=== PATIENT | female | born 1990 | race Two or more races ===

== ENCOUNTER 2018-06-16 06:11 | Inpatient (IN) ==
[2018-06-16] MEDS ORDERED: Diphtheria/Tetanus/Pertussis Vaccine Inj 0.5 ML Syringe IM ONE ×2 (06:22→06:27)
[2018-06-16] MEDS ORDERED: Morphine Inj 4 MG/ML Vial ONE (06:22)
[2018-06-16] MEDS ORDERED: ceFAZolin 2 GM Premix Inj 2 GM/50 ML PIGGYBACK IV.SIG ONE (06:23)
[2018-06-16 06:49] LABS: Baso # (Auto) 0.1 th/mm3 (0.0-0.2); Baso % (Auto) 0.3 % (0.0-2.0); Eos # (Auto) 0.3 th/mm3 (0.0-0.4); Eos % (Auto) 0.7 % (0.0-4.0); Hematocrit 37.9 % (35.0-46.0); Hemoglobin 12.6 gm/dL (11.6-15.3); Lymph # (Auto) 3.6 th/mm3 (1.0-4.8); Lymph % (Auto) 9.7 % (9.0-44.0); Mean Corpuscular HGB Conc 33.1 % (32.0-36.0); Mean Corpuscular Hemoglobin 29.9 pg (27.0-34.0); Mean Corpuscular Volume 90.1 fL (80.0-100.0); Mono # (Auto) 2.1 th/mm3 (0.0-0.9); Mono % (Auto) 5.6 % (0.0-8.0); Neut # (Auto) 31.2 th/mm3 (1.8-7.7); Neut % (Auto) 83.7 % (16.0-70.0); Platelet Count 307 th/mm3 (150-450); White Blood Count 37.3 th/mm3 (4.0-11.0)
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
[2018-06-16 07:03] LABS: Activated Partial Thrombo Time 20.8 sec (23.4-31.7); INR 1.2 Ratio; Prothrombin Time 12.6 sec (9.8-11.6)
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
[2018-06-16 07:36] LABS: Eosinophils 1 % (0-4); Lymphocytes 8 % (9-44); Monocytes 5 % (0-8)
[2018-06-16 07:37] LABS: Platelet Estimate Normal (Normal); Platelet Morphology Normal (Normal); RBC Morphology Normal (Normal)
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
[2018-06-16] MEDS ORDERED: fentaNYL Citrate Inj 250 MCG/5 ML Ampul ONE (07:55)
[2018-06-16] MEDS ORDERED: Gelatin 12 MM/7 MM Topical Foam ONE (08:51)
--- NOTE | 2018-06-16 09:24 | P.RAD ---
Post Procedure Progress Note - Procedure Information Procedure Date: 06/16/18 Supervising Radiologist: Sherif Chow MD Estimated blood loss (mL): 5 Anesthesia: Conscious Sedation - Plan of Activity Patient to Unit: Critical Care Patient Condition: Good See PACS Report for procedural detail/treatment.
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
[2018-06-16] MEDS: Pantoprazole Inj 40 MG Vial IV.PUSH SCH (10:47)
[2018-06-16] MEDS: Sod Chloride 0.9% Inj 1,000 ML IV.CONT SCH ×3 (10:47→20:42)
[2018-06-16] MEDS: Docusate Sodium 100 MG Capsule PO SCH ×2 (10:50→20:41)
[2018-06-16 11:53] LABS: Amphetamine Screen,Urine Neg (Neg); Barbiturate Screen,Urine Neg (Neg); Cannabinoid Screen,Urine Neg (Neg); Cocaine Screen,Urine Neg (Neg)
[2018-06-16 11:55] LABS: Opiate Screen,Urine Pos (Neg)
--- NOTE | 2018-06-16 11:57 | P.CONOP ---
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 unspecified part of right clavicle, initial encounter for closed fracture Status: Acute (2) Traumatic diastasis of symphysis pubis Code(s): S33.4XXA - Traumatic rupture of symphysis pubis, initial encounter Status: Acute (3) Bilateral fracture of pubic rami Code(s): S32.591A - Other specified fracture of right pubis, initial encounter for closed fracture; S32.592A - Other specified fracture of left pubis, initial encounter for closed fracture Status: Acute (4) Fracture acetabulum-closed Code(s): S32.409A - Unspecified fracture of unspecified acetabulum, initial encounter for closed fracture Status: Acute (5) Fracture, scapula closed Code(s): S42.109A - Fracture of unspecified part of scapula, unspecified shoulder, initial encounter for closed fracture Status: Acute - Assessment and Plan I also saw and examined this patient. History, past medical history, social history, review of systems, physical exam, radiographs, assessment, and plan were reviewed. Plan of care was discussed and established. She has a right clavicle fracture, right scapular fracture, pelvic ring disruption, and bilateral acetabulum fractures. At this point I would recommend open reduction to fixation of right clavicle and closed reduction with external fixation of pelvic ring. She may need additional surgery for open reduction fixation of right acetabular fracture next week. The risk and benefits of surgery were discussed in depth with patient. The risk of surgery include bleeding, infection, injuries to arteries, nerves, or blood vessels, infection, wound complications, nonunion, malunion, painful hardware, and need for further surgery. I also discussed medical complications including blood clots, pneumonia, stroke, heart attack, and . Informed consent was obtained and all questions were answered. N.p.o.--plan on surgery this morning Calcium and vitamin D supplementation Physical therapy consult--nonweightbearing right arm and bilateral legs ARUN López Lovenox A mid-level provider in my office (nurse practitioner or physician electrical assistant) may see this patient on follow-up visits and continue to implement the objectives of this plan including: Starting or adjusting medications, injections , cast application, orthotics, brace application, physical therapy, radiological studies (including x-ray, MRI, CT, ultrasound, bone scan), vascular studies, neurologic studies, specialist consultation, and proceeding with surgical management, as appropriate. <Tono Garnica - Last Filed: 06/17/18 12:20>
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
[2018-06-16 13:35] LABS: Baso % (Auto) 0.1 % (0.0-2.0); Hematocrit 40.2 % (35.0-46.0); Hemoglobin 13.5 gm/dL (11.6-15.3); Lymph # (Auto) 0.5 th/mm3 (1.0-4.8); Lymph % (Auto) 2.6 % (9.0-44.0); Mean Corpuscular HGB Conc 33.7 % (32.0-36.0); Mean Corpuscular Hemoglobin 30.7 pg (27.0-34.0); Mean Corpuscular Volume 91.1 fL (80.0-100.0); Mean Platelet Volume 8.4 fL (7.0-11.0); Mono # (Auto) 1.9 th/mm3 (0.0-0.9); Mono % (Auto) 10.1 % (0.0-8.0); Neut # (Auto) 16.3 th/mm3 (1.8-7.7); Neut % (Auto) 87.2 % (16.0-70.0); Platelet Count 213 th/mm3 (150-450); Red Blood Count 4.41 mil/mm3 (4.00-5.30); Red Cell Distribution Width 13.3 % (11.6-17.2); White Blood Count 18.7 th/mm3 (4.0-11.0)
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
[2018-06-16] MEDS: Methocarbamol 500 MG Tablet PO SCH ×2 (16:04→22:24)
[2018-06-16] MEDS: Lidocaine 5% Patch T-DERMAL SCH (16:04)
[2018-06-16] MEDS: Morphine Inj 4 MG/ML Vial IV.PUSH PRN (17:20)
[2018-06-16] MEDS ORDERED: Petrolatum,White 4 GM STICK TOPICAL PRN (17:38)
[2018-06-16] MEDS ORDERED: Sodium Chloride 0.9% 2 ML Flush PRN IV.FLUSH (17:39)
[2018-06-16] MEDS ORDERED: Sodium Phosphate Inj 30 MMOL in Sodium Chlor 0.9% Inj 250 ML IV.SIG PRN (18:58)
[2018-06-16] MEDS ORDERED: Potassium Chloride Liq 20 MEQ/15 ML UDC PO PRN ×2 (18:58)
[2018-06-16] MEDS ORDERED: Potassium Chlor 20 mEq Premix 20 MEQ/100 ML PIGGYBACK IV.SIG PRN ×2 (18:58)
[2018-06-16] MEDS ORDERED: Magnesium Sulfate Inj 4 GM in Sodium Chlor 0.9% Inj 92 ML IV.SIG PRN (18:58)
[2018-06-16] MEDS ORDERED: Potassium Phosphate 500 MG Soluble Tablet PO PRN ×2 (18:58)
[2018-06-16] MEDS ORDERED: Magnesium Sulfate Inj 2 GM in Sodium Chlor 0.9% Inj 96 ML IV.SIG PRN (18:58)
[2018-06-16] MEDS ORDERED: Potassium Phosphate Inj 30 MMOL in Sodium Chlor 0.9% Inj 250 ML IV.SIG PRN (18:58)
[2018-06-16] MEDS ORDERED: Magnesium Oxide 400 MG Tablet PO PRN (18:58)
[2018-06-16] MEDS ORDERED: Potassium Chlor 40 mEq Premix 40 MEQ/100 ML PIGGYBACK IV.SIG PRN ×2 (18:58)
[2018-06-16] MEDS: Sodium Chloride 0.9% 2 ML Flush BID IV.FLUSH SCH (20:42)
[2018-06-17] MEDS ORDERED: Chlorhexidine Gluconate 2% 1 Pack (2 Cloths) TOPICAL PRN (04:00)
--- NOTE | 2018-06-17 04:09 | XR ---
EXAM DATE: 06/17/2018 3:55 AM EST AGE/SEX: 89 years / Female INDICATIONS: Hemathorax. CLINICAL DATA: This is the patient's subsequent encounter. Patient reports that signs and symptoms h ave been present for 2 days and indicates a pain score of Nonresponsive. MEDICAL/SURGICAL HISTORY: Non-responsive. Non-responsive. COMPARISON: [facility] [place], CT CHEST W CONTRAST, 06/16/2018. [facility] [place], CHEST 1V SINGLE AP, 06/16/2018. . FINDINGS: Portable AP view of the chest demonstrates a normal-sized cardiac silhouette. Lungs are underinflated with mild atelectasis at the lung bases. No effusion or pneumothorax is identified. There is a displ aced right mid clavicle fracture. The right rib fractures documented on the a prior CT is not appreci ated on this examination. CONCLUSION: 1. Underinflation with mild atelectasis at the lung bases. No pleural effusion or pneumothorax is vi sualized. 2. Displaced right clavicle fracture. The right rib fracture documented on recent CT is not apprecia cate on this examination. Electronically signed by: Bravo Harper MD Board Certified Radiologist 06/17/2018 4:08 AM EST
[2018-06-17] MEDS: Methocarbamol 500 MG Tablet PO SCH ×3 (05:59→21:53)
[2018-06-17] MEDS: Chlorhexidine Gluconate 2% 1 Pack (2 Cloths) TOPICAL SCH (05:59)
[2018-06-17] MEDS: Sod Chloride 0.9% Inj 1,000 ML IV.CONT SCH ×3 (06:00→21:52)
[2018-06-17 06:10] LABS: Baso % (Auto) 0.3 % (0.0-2.0); Eos % (Auto) 0.2 % (0.0-4.0); Hemoglobin 10.7 gm/dL (11.6-15.3); Lymph # (Auto) 1.4 th/mm3 (1.0-4.8); Lymph % (Auto) 14.6 % (9.0-44.0); Mean Corpuscular HGB Conc 34.6 % (32.0-36.0); Mean Corpuscular Hemoglobin 30.6 pg (27.0-34.0); Mean Corpuscular Volume 88.3 fL (80.0-100.0); Mean Platelet Volume 8.5 fL (7.0-11.0); Mono # (Auto) 1.2 th/mm3 (0.0-0.9); Mono % (Auto) 12.4 % (0.0-8.0); Neut # (Auto) 6.8 th/mm3 (1.8-7.7); Neut % (Auto) 72.5 % (16.0-70.0); Platelet Count 152 th/mm3 (150-450); Red Blood Count 3.51 mil/mm3 (4.00-5.30); White Blood Count 9.4 th/mm3 (4.0-11.0)
[2018-06-17 06:36] LABS: Anion Gap 8 meq/L (5-15); Blood Urea Nitrogen 17 mg/dL (7-18); Calcium 7.8 mg/dL (8.5-10.1); Carbon Dioxide 25.9 meq/L (21.0-32.0); Chloride 104 meq/L (98-107); Glomerular Filtration Rate Greater Than 89 mL/min (>89); Glucose,Random 105 mg/dL (74-106); Potassium 3.9 meq/L (3.5-5.1); Sodium 138 meq/L (136-145)
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
[2018-06-17] MEDS: Lidocaine 5% Patch T-DERMAL SCH (09:05)
[2018-06-17] MEDS: Docusate Sodium 100 MG Capsule PO SCH ×2 (09:05→21:54)
[2018-06-17] MEDS: Sodium Chloride 0.9% 2 ML Flush BID IV.FLUSH SCH ×2 (09:05→21:54)
[2018-06-17] MEDS: Pantoprazole Inj 40 MG Vial IV.PUSH SCH (09:05)
[2018-06-17] MEDS ORDERED: ceFAZolin 1 GM Premix Inj 1 GM/50 ML PIGGYBACK IV.SIG ONE (09:34)
[2018-06-17] MEDS ORDERED: Succinylcholine Inj 100 MG/5 ML Syringe IV.PUSH ONE (10:19)
[2018-06-17] MEDS ORDERED: Sodium Chlor 0.9% Inj 250 ML IV.CONT ONE (10:19)
[2018-06-17] MEDS ORDERED: Lidocaine PF 1% Inj 5 ML Syringe OTHER ONE (10:19)
[2018-06-17] MEDS ORDERED: Bupivacaine/Epinephrine Inj 0.25% 50 ML Vial ONE (11:24)
[2018-06-17] MEDS ORDERED: SODIUM CHLOR 0.9% IRRIGATION ONE (11:42)
[2018-06-17] MEDS ORDERED: GENTAMICIN IRRIGATION ONE (11:42)
--- NOTE | 2018-06-17 11:54 | OTSOAPIP ---
TIME SESSION COMPLETED: 1150 TREATMENT TIME: 0 MINS. CHART REVIEWED. PATIENT OFF FLOOR FOR SURGERY WILL FOLLOW UP TOMORROW. Therapist: Annie Meneses Signature on file
[2018-06-17] MEDS ORDERED: Post-op Orders (for Pharmacy) OTHER STA (12:10)
--- NOTE | 2018-06-17 12:19 | P.OP ---
- Preoperative Diagnosis (1) Fracture of clavicle, right, closed (2) Traumatic diastasis of symphysis pubis (3) Bilateral fracture of pubic rami Date of procedure: 06/17/18 Procedure: Open reduction to fixation right clavicle, closed reduction of pelvic fractures with manipulation, external fixation pelvis Anesthesia: GETA Surgeon: Tono David MD Frame And Scrap Crusher: NICKI Bautista PA-C The surgical procedure was assisted by my physician practice assistant. My P.A. presence was necessary throughout this case for the manipulation and positioning of the surgical extremity. My P.A. was assisting me throughout the duration of this procedure. The skill set of a physician practice assistant was medically necessary to complete this procedure. During the surgical case the certified surgical tech/first assistant was working at the back table and the physician practice assistant was directly assisting me. Operation and Findings: Implants used: Synthes Plan of activity: Sling right arm, nonweightbearing right arm and bilateral legs Details of procedure: Patient was seen and evaluated preoperatively. Patient was found to have a pubic symphysis disruption, bilateral acetabulum fractures, and displaced right clavicle fracture. The risks and benefits of surgical and nonsurgical options were discussed in detail and informed consent was obtained for surgery. Patient was brought to the operating room and placed on or table. IV sedation and GETA were administered by anesthesiologist. Antibiotics were given prior to incision. Operative arm and shoulder were prepped with alcohol followed by Hibiclens and draped usual sterile fashion. Timeout procedure was performed. Procedure began with a 4 inch incision over the anterior clavicle. Subcutaneous tissue was dissected with Bovie. The fracture was now visualized. Soft tissue was retracted. Fracture was cleaned with curettes. Attention was now turned to reduction. Gentle traction was applied and fracture tenaculums were used to reduce the fracture. Fracture was manipulated to achieve excellent reduction. Multiplanar fluoroscopy confirmed well aligned fracture. K wires were used to hold provisional fixation. A clavicle plate was selected. Plate was provisionally held in place K wires. 3.5 cortical screws were used to compress plate to bone. Fluoroscopy confirmed appropriate plate placement and fracture reduction. Multiple screws were placed on each side of the fracture. All Screws were predrilled and premeasured for appropriate length. Care was taken to avoid injury to neurovascular structures. Final fluoroscopy revealed well aligned fracture with well-placed hardware. Wound was thoroughly irrigated. Fascia was closed with #0 Vicryl, subcutaneous tissues closed with 3-0 Vicryl, and skin was closed with barry. Next attention was turned towards the pelvis. A small incision was made over the anterior inferior iliac spine bilaterally. Subcu tissue was dissected bluntly. Dural sleeves were now placed down to bone. The cortical bone was predrilled. Synthes MCCAIN-coated pins were now placed in a supra acetabular position. Multiplanar fluoroscopy confirmed appropriate pin placement. Fluoroscopy was used to guide pin placement to avoid injury to neurovascular structures. An external fixator construct was now created. Next attention was turned towards manipulation of the pelvis. The the fracture and pubic symphysis were reduced. The fracture was manipulated. External fixator was tightened to hold reduction. Fluoroscopy confirmed appropriate alignment of the external fixation. Sterile dressings were applied. Patient was placed into a sling. Patient was awakened and transferred to recovery in stable condition. Needle and sponge counts were correct.
[2018-06-17] MEDS ORDERED: fentaNYL Citrate Inj 100 MCG/2 ML Ampul ONE (12:48)
[2018-06-17] MEDS ORDERED: *morphine SULFATE 4 MG/ML PERIprocedure ONLY ONE ×2 (12:50→13:07)
--- NOTE | 2018-06-17 14:11 | XR ---
EXAM DATE: 06/17/2018 2:07 PM EST AGE/SEX: 27 years / Female INDICATIONS: Right clavicle open reduction internal fixation. CLINICAL DATA: This is the patient's initial encounter. Patient reports that signs and symptoms have been present for 1 day and indicates a pain score of Nonresponsive. MEDICAL/SURGICAL HISTORY: Non-responsive. Non-responsive. COMPARISON: No prior exams available for comparison. FINDINGS: Side plate and multiple screws traverse the right clavicle with excellent anatomical align ment of the bony structures. CONCLUSION: Intact postsurgical changes for technique. Electronically signed by: Micha Tom MD Board Certified Radiologist 06/17/2018 2:09 PM EST
--- NOTE | 2018-06-17 14:12 | XR ---
EXAM DATE: 06/17/2018 2:08 PM EST AGE/SEX: 27 years / Female INDICATIONS: Pelvis ex-fix. CLINICAL DATA: This is the patient's initial encounter. Patient reports that signs and symptoms have been present for 1 day and indicates a pain score of Nonresponsive. MEDICAL/SURGICAL HISTORY: Non-responsive. Non-responsive. COMPARISON: No prior exams available for comparison. FINDINGS: External fixation screw traverses the right iliac bone. CONCLUSION: External fixation device. Electronically signed by: Micha Tom MD Board Certified Radiologist 06/17/2018 2:11 PM EST
[2018-06-17] MEDS ORDERED: ceFAZolin Inj 2,000 MG in Sodium Chlor 0.9% Inj 80 ML IV.SIG SCH (15:00)
[2018-06-17] MEDS: ceFAZolin 2 GM Premix Inj 2 GM/50 ML PIGGYBACK IV.SIG SCH ×2 (15:16→23:32)
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
--- NOTE | 2018-06-17 15:41 | P.PNOP ---
Subjective Interval history: Transferred to PACU in stable condition Physical Exam Vital signs: Vital Signs 06/16/18 16:00 06/16/18 16:01 06/16/18 16:31 Temperature 100.2 F H 100.2 F H 100.2 F H Pulse Rate 119 H 120 H 128 H Respiratory Rate 25 H 24 25 H Blood Pressure 101/63 103/58 L Pulse Oximetry 100 100 99 06/16/18 17:00 06/16/18 17:01 06/16/18 17:31 Temperature 100.2 F H 100.2 F H 100.2 F H Pulse Rate 125 H 125 H 117 H Respiratory Rate 25 H 26 H 25 H Blood Pressure 97/58 L 102/63 Pulse Oximetry 99 99 100 06/16/18 18:00 06/16/18 18:01 06/16/18 18:31 Temperature 100.2 F H 100.2 F H 100.2 F H Pulse Rate 122 H 118 H 114 H Respiratory Rate 24 25 H 25 H Blood Pressure 97/58 L 98/60 L Pulse Oximetry 97 99 99 06/16/18 19:00 06/16/18 19:01 06/16/18 19:31 Temperature 100.0 F H 100.0 F H 99.9 F H Pulse Rate 121 H 120 H 123 H Respiratory Rate 20 20 22 Blood Pressure 101/56 L 98/54 L Pulse Oximetry 99 99 97 06/16/18 19:49 06/16/18 20:00 06/16/18 20:01 Temperature 100.0 F H 100.0 F H Pulse Rate 114 H 123 H 128 H Respiratory Rate 14 24 24 Blood Pressure 121/77 Pulse Oximetry 100 100 06/16/18 20:31 06/16/18 21:00 06/16/18 21:01 Temperature 100.0 F H 100.0 F H 100.0 F H Pulse Rate 130 H 126 H 123 H Respiratory Rate 22 29 H 31 H Blood Pressure 145/55 H 114/64 Pulse Oximetry 98 99 99 06/16/18 21:31 06/16/18 22:00 06/16/18 22:01 Temperature 99.9 F H 99.9 F H 99.9 F H Pulse Rate 122 H 118 H 125 H Respiratory Rate 23 21 20 Blood Pressure 103/62 97/60 L Pulse Oximetry 97 98 97 06/16/18 22:31 06/16/18 23:00 06/16/18 23:01 Temperature 99.9 F H 99.7 F H 99.7 F H Pulse Rate 124 H 123 H 124 H Respiratory Rate 23 23 22 Blood Pressure 98/57 L 103/60 Pulse Oximetry 98 98 97 06/16/18 23:31 06/17/18 00:00 06/17/18 00:01 Temperature 99.5 F 99.5 F 99.5 F Pulse Rate 120 H 113 H 113 H Respiratory Rate 21 24 25 H Blood Pressure 98/57 L 106/65 Pulse Oximetry 99 100 99 06/17/18 00:31 06/17/18 01:00 06/17/18 01:01 Temperature 99.5 F 99.3 F 99.3 F Pulse Rate 118 H 117 H 116 H Respiratory Rate 24 20 20 Blood Pressure 104/62 101/59 L Pulse Oximetry 100 98 99 06/17/18 01:15 06/17/18 01:31 06/17/18 02:00 Temperature 99.1 F 99.0 F Pulse Rate 116 H 113 H Respiratory Rate 22 18 18 Blood Pressure 116/53 L Pulse Oximetry 96 97 06/17/18 02:01 06/17/18 02:31 06/17/18 03:00 Temperature 98.8 F 98.6 F 98.6 F Pulse Rate 112 H 109 H 112 H Respiratory Rate 18 17 19 Blood Pressure 108/55 L 113/57 L Pulse Oximetry 97 99 99 06/17/18 03:01 06/17/18 03:18 06/17/18 03:31 Temperature 98.6 F 98.6 F Pulse Rate 110 H 111 H 108 H Respiratory Rate 17 16 19 Blood Pressure 103/56 L 110/65 Pulse Oximetry 99 100 06/17/18 04:00 06/17/18 04:01 06/17/18 04:31 Temperature 98.6 F 98.6 F 98.6 F Pulse Rate 116 H 113 H 113 H Respiratory Rate 34 H 35 H 24 Blood Pressure 100/59 L 111/57 L Pulse Oximetry 98 99 99 06/17/18 05:00 06/17/18 05:01 06/17/18 05:31 Temperature 98.4 F 98.4 F 98.2 F Pulse Rate 113 H 112 H 109 H Respiratory Rate 22 23 20 Blood Pressure 101/61 107/62 Pulse Oximetry 98 99 100 06/17/18 06:00 06/17/18 06:01 06/17/18 06:31 Temperature 98.4 F 98.4 F 98.4 F Pulse Rate 108 H 111 H 105 H Respiratory Rate 28 H 23 15 Blood Pressure 109/65 111/59 L Pulse Oximetry 99 100 98 06/17/18 07:00 06/17/18 07:01 06/17/18 07:31 Temperature 98.4 F 98.4 F 98.2 F Pulse Rate 104 H 105 H 100 H Respiratory Rate 18 17 16 Blood Pressure 111/60 100/66 Pulse Oximetry 98 98 99 06/17/18 08:00 06/17/18 08:01 06/17/18 08:03 Temperature 98.2 F 98.2 F Pulse Rate 103 H 104 H 103 H Respiratory Rate 24 22 18 Blood Pressure 107/59 L Pulse Oximetry 100 100 06/17/18 08:31 06/17/18 09:30 06/17/18 10:00 Temperature 98.2 F Pulse Rate 105 H 110 H 112 H Respiratory Rate 33 H 20 21 Blood Pressure 108/61 108/59 L 105/55 L Pulse Oximetry 99 100 100 06/17/18 12:45 06/17/18 13:03 06/17/18 13:20 Temperature 98.7 F 98.0 F Pulse Rate 121 H 110 H 112 H Respiratory Rate 20 20 18 Blood Pressure 115/56 L 109/56 L 106/58 L Pulse Oximetry 96 96 98 Intake & Output 06/16/18 06/17/18 06/17/18 18:59 06:59 18:59 Intake Total 50 / 50 2430 / 2430 50 / 50 Output Total 450 / 450 550 / 550 Balance 50 / 50 1979 / 1979 -500 / -500 Weight 90.6 kg 93.4 kg Intake: IV 50 / 50 1949 50 / 50 NS Inj 1,000 ML @ 100 mls/hr IV 1949 .CONT .Q10H [facility] Rx#:[id number] Ancef 1 GM Premix Inj 1 gm In 50 / 50 50 ml @ 0 mls/hr IV.SIG .STK- MED ONE Rx#:[id number] Oral 480 / 480 Output: Estimated Blood Loss 100 / 100 Urine Amount (Catheter) 450 / 450 450 / 450 Indwelling Temp Sensing 450 / 450 450 / 450 Catheter Other: Weight On Admission 90.6 kg Narrative: Right upper extremity: Clean dry dressings intact. Sling in place. Good capillary refills and distal pulses to right upper extremity Pelvic external fixator well seated and intact. Clean dressings dressed over pin sites. Intact distal pulses and good capillary refills in bilateral lower extremities - Urinary Catheter Management Indwelling Temp Sensing Catheter Cath placed during this visit: yes Reason for continuing: Hourly intake/output Insertion date: 06/16/18 Insertion time: 08:24 Results - Labs CBC & Chem 7: 06/17/18 05:32 06/17/18 05:32 Laboratory Results - last 24 hr 06/16/18 06/17/18 06/17/18 06:44 05:32 05:32 WBC 9.4 RBC 3.51 L Hgb 10.7 L D Hct 31.0 L MCV 88.3 MCH 30.6 MCHC 34.6 RDW 13.0 Plt Count 152 MPV 8.5 Neut % (Auto) 72.5 H Lymph % (Auto) 14.6 [place] % (Auto) 12.4 H Eos % (Auto) 0.2 Baso % (Auto) 0.3 Neut # (Auto) 6.8 Lymph # (Auto) 1.4 [place] # (Auto) 1.2 H Eos # (Auto) 0.0 Baso # (Auto) 0.0 WBC Differential . Differential Comment Auto diff final Sodium 138 Potassium 3.9 Chloride 104 Carbon Dioxide 25.9 Anion Gap 8 BUN 17 Creatinine 0.55 Estimated GFR Greater than 89 Random Glucose 105 Calcium 7.8 L MTS Gel Crossmatch See Detail - Imaging Impressions Abdominal Angiography 06/16/18 07:38 CONCLUSION: 1. Findings most consistent with dissection and limited active hemorrhage from a second order anterior branch of the right hypogastric artery. This was successfully coil embolized with additional Gelfoam embolization of the right hypogastric artery. 2. No evidence for significant right femoral or iliac vein injury. Clavicle X-Ray 06/17/18 00:00 CONCLUSION: Intact postsurgical changes for technique. Pelvis X-Ray 06/17/18 00:00 CONCLUSION: External fixation device. Chest X-Ray 06/17/18 06:00 CONCLUSION: 1. Underinflation with mild atelectasis at the lung bases. No pleural effusion or pneumothorax is visualized. 2. Displaced right clavicle fracture. The right rib fracture documented on recent CT is not appreciated on this examination. Assessment and Plan - Problem List (1) Fracture of clavicle, right, closed Code(s): S42.001A - Fracture of unspecified part of right clavicle, initial encounter for closed fracture Status: Acute (2) Traumatic diastasis of symphysis pubis Code(s): S33.4XXA - Traumatic rupture of symphysis pubis, initial encounter Status: Acute (3) Bilateral fracture of pubic rami Code(s): S32.591A - Other specified fracture of right pubis, initial encounter for closed fracture; S32.592A - Other specified fracture of left pubis, initial encounter for closed fracture Status: Acute (4) Fracture acetabulum-closed Code(s): S32.409A - Unspecified fracture of unspecified acetabulum, initial encounter for closed fracture Status: Acute (5) Fracture, scapula closed Code(s): S42.109A - Fracture of unspecified part of scapula, unspecified shoulder, initial encounter for closed fracture Status: Acute - Assessment and Plan Right clavicle fracture ORIF POD 1 with right scapular fracture treated nonoperatively Minimal weightbearing right upper extremity. Continue to wear the sling. Occupational therapy and/or physical therapy for passive range of motion of shoulder with active motion of elbow wrist and fingers Maintain dressing times 5 days then remove and replace with Primapore. Beginning POD 10 begin adding Xeroform over incision to breakdown skin glue Bilateral acetabular fractures and pubic symphysis diastases status post external fixation POD 1 Nonweightbearing bilateral lower extremities Pin care twice daily Lovenox Further surgeries next week for pelvic ring and acetabular fractures.
[2018-06-18] MEDS: Sod Chloride 0.9% Inj 1,000 ML IV.CONT SCH ×3 (00:36→10:34)
[2018-06-18] MEDS: Chlorhexidine Gluconate 2% 1 Pack (2 Cloths) TOPICAL SCH (03:41)
[2018-06-18] MEDS: Morphine Inj 4 MG/ML Vial IV.PUSH PRN ×2 (05:13→23:56)
[2018-06-18] MEDS: Methocarbamol 500 MG Tablet PO SCH ×3 (05:14→21:06)
--- NOTE | 2018-06-18 05:28 | XR ---
EXAM DATE: 06/18/2018 5:21 AM EST AGE/SEX: 27 years / Female INDICATIONS: Respiratory disease. CLINICAL DATA: This is the patient's subsequent encounter. Patient reports that signs and symptoms h ave been present for 3 days and indicates a pain score of Nonresponsive. MEDICAL/SURGICAL HISTORY: Non-responsive. Non-responsive. COMPARISON: [facility] [place], CHEST 1V SINGLE AP, 06/17/2018. . FINDINGS: Portable AP view of the chest demonstrates a normal-sized cardiac silhouette. Lungs are underinflated with mild atelectasis at the lung bases. No pleural effusion or pneumothorax is identified. There tejada s been interval right clavicle ORIF with side plate and screws present. CONCLUSION: Underinflation with mild atelectasis at the bases. Otherwise, no acute finding is identified. Electronically signed by: Bravo Harpre MD Board Certified Radiologist 06/18/2018 5:27 AM EST
[2018-06-18 05:57] LABS: Baso % (Auto) 0.2 % (0.0-2.0); Eos % (Auto) 0.4 % (0.0-4.0); Hematocrit 25.4 % (35.0-46.0); Lymph # (Auto) 1.2 th/mm3 (1.0-4.8); Mean Corpuscular HGB Conc 35.6 % (32.0-36.0); Mean Corpuscular Hemoglobin 31.5 pg (27.0-34.0); Mean Corpuscular Volume 88.7 fL (80.0-100.0); Mean Platelet Volume 8.6 fL (7.0-11.0); Mono # (Auto) 0.9 th/mm3 (0.0-0.9); Mono % (Auto) 9.6 % (0.0-8.0); Neut # (Auto) 7.3 th/mm3 (1.8-7.7); Neut % (Auto) 76.8 % (16.0-70.0); Platelet Count 119 th/mm3 (150-450); Red Blood Count 2.86 mil/mm3 (4.00-5.30); Red Cell Distribution Width 13.3 % (11.6-17.2); White Blood Count 9.5 th/mm3 (4.0-11.0)
[2018-06-18] MEDS: ceFAZolin 2 GM Premix Inj 2 GM/50 ML PIGGYBACK IV.SIG SCH ×3 (06:17→23:56)
[2018-06-18 06:24] LABS: Alanine Aminotransferase 55 U/L (10-53); Albumin 2.4 g/dL (3.4-5.0); Anion Gap 4 meq/L (5-15); Aspartate Aminotransferase 97 U/L (15-37); Blood Urea Nitrogen 11 mg/dL (7-18); Calcium 7.6 mg/dL (8.5-10.1); Carbon Dioxide 27.3 meq/L (21.0-32.0); Chloride 106 meq/L (98-107); Glomerular Filtration Rate Greater Than 89 mL/min (>89); Glucose,Random 95 mg/dL (74-106); Sodium 137 meq/L (136-145)
[2018-06-18 06:26] LABS: Alkaline Phosphatase 41 U/L (45-117); Total Protein 5.3 g/dL (6.4-8.2)
--- NOTE | 2018-06-18 07:42 | P.PNOP ---
Subjective Interval history: No new complaints from the right arm or the pelvis. She just complains of some pain. Physical Exam Vital signs: Vital Signs 06/17/18 08:00 06/17/18 08:01 06/17/18 08:03 Temperature 98.2 F 98.2 F Pulse Rate 103 H 104 H 103 H Respiratory Rate 24 22 18 Blood Pressure 107/59 L Pulse Oximetry 100 100 06/17/18 08:31 06/17/18 08:50 06/17/18 09:30 Temperature 98.2 F Pulse Rate 105 H 108 H 110 H Respiratory Rate 33 H 32 H 20 Blood Pressure 108/61 108/59 L Pulse Oximetry 99 100 100 06/17/18 10:00 06/17/18 12:45 06/17/18 13:03 Temperature 98.7 F Pulse Rate 112 H 121 H 110 H Respiratory Rate 21 20 20 Blood Pressure 105/55 L 115/56 L 109/56 L Pulse Oximetry 100 96 96 06/17/18 13:20 06/17/18 13:54 06/17/18 13:56 Temperature 98.0 F Pulse Rate 112 H Respiratory Rate 18 Blood Pressure 106/58 L 117/57 L Pulse Oximetry 98 100 06/17/18 14:00 06/17/18 15:00 06/17/18 16:00 Temperature 98.4 F 98.6 F 99.0 F Pulse Rate 105 H 114 H 123 H Respiratory Rate 16 16 18 Blood Pressure 116/61 98/56 L Pulse Oximetry 100 100 100 06/17/18 16:56 06/17/18 17:00 06/17/18 18:00 Temperature 99.5 F 100.0 F H Pulse Rate 125 H 123 H 135 H Respiratory Rate 26 H 13 20 Blood Pressure 100/56 L 103/55 L Pulse Oximetry 100 99 06/17/18 19:00 06/17/18 19:46 06/17/18 20:00 Temperature 100.4 F H 100.4 F H Pulse Rate 130 H 126 H 123 H Respiratory Rate 23 15 21 Blood Pressure 96/52 L 106/57 L Pulse Oximetry 100 98 06/17/18 21:00 06/17/18 22:00 06/17/18 23:00 Temperature 100.0 F H 99.9 F H 99.7 F H Pulse Rate 136 H 133 H 131 H Respiratory Rate 19 26 H 20 Blood Pressure 111/56 L 106/51 L 102/53 L Pulse Oximetry 95 98 95 06/18/18 00:00 06/18/18 01:00 06/18/18 02:00 Temperature 99.7 F H 99.7 F H 99.5 F Pulse Rate 132 H 131 H 128 H Respiratory Rate 20 20 21 Blood Pressure 102/50 L 98/54 L 101/55 L Pulse Oximetry 98 98 97 06/18/18 03:00 06/18/18 03:38 06/18/18 04:00 Temperature 99.5 F 99.1 F Pulse Rate 128 H 119 H 126 H Respiratory Rate 21 16 38 H Blood Pressure 98/52 L 100/52 L Pulse Oximetry 96 96 06/18/18 05:00 06/18/18 05:06 06/18/18 06:00 Temperature 99.1 F 99.3 F 99.0 F Pulse Rate 116 H 116 H 124 H Respiratory Rate 19 20 Blood Pressure 106/57 L 92/51 L Pulse Oximetry 98 98 94 L Intake & Output 06/17/18 06/18/18 06/18/18 18:59 06:59 18:59 Intake Total 1030 / 1030 2746 / 2746 Output Total 1200 / 1200 550 / 550 Balance -170 / -170 2196 / 2196 Weight 97.3 kg Intake: IV 550 / 550 2386 / 2386 Gentamicin Inj 160 MG In NS Inj 1004 / 1004 1,000 ML @ 100 mls/hr IRRIGATION ONCE ONE Rx#: [id number] NS Inj 1,000 ML @ 100 mls/hr IV 500 / 500 1232 / 1232 .CONT .Q10H [facility] Rx#:[id number] Ancef 1 GM Premix Inj 1 gm In 50 / 50 50 ml @ 0 mls/hr IV.SIG .STK- MED ONE Rx#:[id number] Ancef 2 GM Premix Inj 2 gm In 150 / 150 50 ml @ 100 mls/hr IV.SIG Q8H [facility] Rx#:[id number] Oral 480 / 480 360 / 360 Output: Stool 0 / 0 Estimated Blood Loss 100 / 100 Urine Amount (Catheter) 1100 / 1100 550 / 550 Indwelling Temp Sensing 1100 / 1100 550 / 550 Catheter Narrative: The right upper extremity has a dressing which is clean and dry. There is no drainage. There is minimal swelling. She can move the fingers on the right hand well. She has a sling applied for comfort. Examination of the pelvis shows her external fixator is intact. She has dressings around the pin sites. There is no drainage or surrounding erythema. She has no swelling about the bilateral calves. She cannot really move the toes on both feet. - Urinary Catheter Management Indwelling Temp Sensing Catheter Cath placed during this visit: yes Reason for continuing: Hourly intake/output Insertion date: 06/16/18 Insertion time: 08:24 Results - Labs CBC & Chem 7: 06/18/18 05:18 06/18/18 05:18 Laboratory Results - last 24 hr 06/18/18 06/18/18 05:18 05:18 WBC 9.5 RBC 2.86 L Hgb 9.0 L Hct 25.4 L MCV 88.7 MCH 31.5 MCHC 35.6 RDW 13.3 Plt Count 119 L MPV 8.6 Neut % (Auto) 76.8 H Lymph % (Auto) 13.0 [place] % (Auto) 9.6 H Eos % (Auto) 0.4 Baso % (Auto) 0.2 Neut # (Auto) 7.3 Lymph # (Auto) 1.2 [place] # (Auto) 0.9 Eos # (Auto) 0.0 Baso # (Auto) 0.0 WBC Differential . Differential Comment Auto diff final Sodium 137 Potassium 4.0 Chloride 106 Carbon Dioxide 27.3 Anion Gap 4 L BUN 11 Creatinine 0.52 Estimated GFR Greater than 89 Random Glucose 95 Calcium 7.6 L Total Bilirubin 0.7 AST 97 H ALT 55 H Alkaline Phosphatase 41 L Total Protein 5.3 L Albumin 2.4 L - Imaging Impressions Abdominal Angiography 06/16/18 07:38 CONCLUSION: 1. Findings most consistent with dissection and limited active hemorrhage from a second order anterior branch of the right hypogastric artery. This was successfully coil embolized with additional Gelfoam embolization of the right hypogastric artery. 2. No evidence for significant right femoral or iliac vein injury. Clavicle X-Ray 06/17/18 00:00 CONCLUSION: Intact postsurgical changes for technique. Pelvis X-Ray 06/17/18 00:00 CONCLUSION: External fixation device. Chest X-Ray 06/18/18 06:00 CONCLUSION: Underinflation with mild atelectasis at the bases. Otherwise, no acute finding is identified. Assessment and Plan - Problem List (1) Fracture of clavicle, right, closed Code(s): S42.001A - Fracture of unspecified part of right clavicle, initial encounter for closed fracture Status: Acute (2) Traumatic diastasis of symphysis pubis Code(s): S33.4XXA - Traumatic rupture of symphysis pubis, initial encounter Status: Acute (3) Bilateral fracture of pubic rami Code(s): S32.591A - Other specified fracture of right pubis, initial encounter for closed fracture; S32.592A - Other specified fracture of left pubis, initial encounter for closed fracture Status: Acute (4) Fracture acetabulum-closed Code(s): S32.409A - Unspecified fracture of unspecified acetabulum, initial encounter for closed fracture Status: Acute (5) Fracture, scapula closed Code(s): S42.109A - Fracture of unspecified part of scapula, unspecified shoulder, initial encounter for closed fracture Status: Acute - Assessment and Plan Right clavicle fracture ORIF POD 2 with right scapular fracture treated nonoperatively Minimal weightbearing right upper extremity. Continue to wear the sling. Occupational therapy and/or physical therapy for passive range of motion of shoulder with active motion of elbow wrist and fingers Maintain dressing times 5 days then remove and replace with Primapore. Beginning POD 10 begin adding Xeroform over incision to breakdown skin glue Bilateral acetabular fractures and pubic symphysis diastases status post external fixation POD 2 Nonweightbearing bilateral lower extremities Pin care twice daily Lovenox Further surgeries next week for pelvic ring and acetabular fractures. Overall stable.
[2018-06-18] MEDS: Pantoprazole Inj 40 MG Vial IV.PUSH SCH (08:26)
[2018-06-18] MEDS: Docusate Sodium 100 MG Capsule PO SCH ×2 (08:27→21:06)
[2018-06-18] MEDS: Lidocaine 5% Patch T-DERMAL SCH (08:27)
[2018-06-18] MEDS: Sodium Chloride 0.9% 2 ML Flush BID IV.FLUSH SCH ×2 (08:28→21:07)
[2018-06-18] MEDS: Enoxaparin Inj 30 MG/0.3 ML Syringe SQ SCH ×2 (11:12→23:55)
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
--- NOTE | 2018-06-18 16:48 | OTSOAPIP ---
PATIENT BEING TRANSFERRED TO MEDICAL FLOOR AT TIME OF ARRIVAL. WILL SEE NEXT DAY. Therapist: LISA SELF OTR/Danielle Signature on file
[2018-06-18] MEDS ORDERED: LORazepam 0.5 MG Tablet PO PRN (18:47)
[2018-06-18] MEDS ORDERED: LORazepam 0.5 MG Tablet PO ONE (19:00)
[2018-06-19] MEDS: Methocarbamol 500 MG Tablet PO SCH ×4 (04:58→21:36)
[2018-06-19 05:39] LABS: Baso % (Auto) 0.4 % (0.0-2.0); Eos # (Auto) 0.1 th/mm3 (0.0-0.4); Eos % (Auto) 0.8 % (0.0-4.0); Hematocrit 24.6 % (35.0-46.0); Hemoglobin 8.3 gm/dL (11.6-15.3); Lymph # (Auto) 1.4 th/mm3 (1.0-4.8); Lymph % (Auto) 15.9 % (9.0-44.0); Mean Corpuscular HGB Conc 33.9 % (32.0-36.0); Mean Corpuscular Hemoglobin 30.5 pg (27.0-34.0); Mean Corpuscular Volume 90.1 fL (80.0-100.0); Mean Platelet Volume 8.4 fL (7.0-11.0); Mono # (Auto) 0.7 th/mm3 (0.0-0.9); Mono % (Auto) 7.7 % (0.0-8.0); Neut # (Auto) 6.6 th/mm3 (1.8-7.7); Neut % (Auto) 75.2 % (16.0-70.0); Platelet Count 150 th/mm3 (150-450); Red Blood Count 2.73 mil/mm3 (4.00-5.30); Red Cell Distribution Width 13.4 % (11.6-17.2); White Blood Count 8.8 th/mm3 (4.0-11.0)
[2018-06-19 06:04] LABS: Albumin 2.3 g/dL (3.4-5.0); Anion Gap 6 meq/L (5-15); Aspartate Aminotransferase 79 U/L (15-37); Blood Urea Nitrogen 11 mg/dL (7-18); Calcium 7.5 mg/dL (8.5-10.1); Carbon Dioxide 26.7 meq/L (21.0-32.0); Chloride 106 meq/L (98-107); Glomerular Filtration Rate Greater Than 89 mL/min (>89); Glucose,Random 94 mg/dL (74-106); Potassium 3.5 meq/L (3.5-5.1); Sodium 139 meq/L (136-145)
[2018-06-19 06:07] LABS: Alanine Aminotransferase 47 U/L (10-53); Alkaline Phosphatase 37 U/L (45-117); Total Protein 5.5 g/dL (6.4-8.2)
[2018-06-19] MEDS: ceFAZolin 2 GM Premix Inj 2 GM/50 ML PIGGYBACK IV.SIG SCH (06:25)
[2018-06-19] MEDS: Pantoprazole Inj 40 MG Vial IV.PUSH SCH (09:00)
[2018-06-19] MEDS: Lidocaine 5% Patch T-DERMAL SCH (09:01)
[2018-06-19] MEDS: Docusate Sodium 100 MG Capsule PO SCH ×3 (09:01→21:36)
[2018-06-19] MEDS: Sodium Chloride 0.9% 2 ML Flush BID IV.FLUSH SCH ×2 (09:01→21:36)
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
[2018-06-19] MEDS: Enoxaparin Inj 30 MG/0.3 ML Syringe SQ SCH (11:42)
--- NOTE | 2018-06-19 12:50 | P.PNOP ---
Subjective Interval history: No new complaints as far as the pelvis of the right clavicle. Physical Exam Vital signs: Vital Signs 06/18/18 13:15 06/18/18 14:55 06/18/18 16:10 Temperature 98.3 F Pulse Rate 116 H 125 H Respiratory Rate 22 24 19 Blood Pressure 118/63 Pulse Oximetry 99 06/18/18 16:31 06/18/18 19:33 06/18/18 21:36 Temperature 98.9 F Pulse Rate 107 H Respiratory Rate 18 17 20 Blood Pressure 101/54 L Pulse Oximetry 96 06/18/18 23:40 06/19/18 00:11 06/19/18 04:30 Temperature 99.3 F Pulse Rate 116 H 121 H Respiratory Rate 17 17 18 Blood Pressure 111/56 L Pulse Oximetry 94 L 06/19/18 05:24 06/19/18 08:21 06/19/18 08:26 Temperature 97.9 F Pulse Rate 78 117 H Respiratory Rate 18 18 17 Blood Pressure 124/59 L Pulse Oximetry 96 Intake & Output 06/18/18 06/19/18 06/19/18 18:59 06:59 18:59 Intake Total 410 / 410 100 / 100 Output Total 1000 / 1000 1450 / 1450 Balance -590 / -590 -1350 / -1350 Intake: IV 50 / 50 100 / 100 Ancef 2 GM Premix Inj 2 gm In 50 / 50 100 / 100 50 ml @ 100 mls/hr IV.SIG Q8H [facility] Rx#:[id number] Oral 360 / 360 Output: Urine Amount (Catheter) 1000 / 1000 1450 / 1450 Indwelling Temp Sensing 1000 / 1000 1450 / 1450 Catheter Other: Date of Last Bowel Movement 06/16/18 Narrative: The pelvic ex-fix is intact. There is no surrounding drainage from the pin sites. The right shoulder is dressed with no drainage on the dressing. - Urinary Catheter Management Indwelling Temp Sensing Catheter Cath placed during this visit: yes Reason for continuing: Other continuation reason Insertion date: 06/16/18 Insertion time: 08:24 Results - Labs CBC & Chem 7: 06/19/18 04:54 06/19/18 04:54 Laboratory Results - last 24 hr 06/16/18 06/19/18 06/19/18 06:22 04:54 04:54 WBC 8.8 RBC 2.73 L Hgb 8.3 L Hct 24.6 L MCV 90.1 MCH 30.5 MCHC 33.9 RDW 13.4 Plt Count 150 MPV 8.4 Prelim Diff (Auto) Slide review pending Neut % (Auto) 75.2 H Lymph % (Auto) 15.9 [place] % (Auto) 7.7 Eos % (Auto) 0.8 Baso % (Auto) 0.4 Neut # (Auto) 6.6 Lymph # (Auto) 1.4 [place] # (Auto) 0.7 Eos # (Auto) 0.1 Baso # (Auto) 0.0 WBC Differential . Diff Scan Auto diff confirmed Differential Comment . Sodium 139 Potassium 3.5 Chloride 106 Carbon Dioxide 26.7 Anion Gap 6 BUN 11 Creatinine 0.48 L Estimated GFR Greater than 89 Random Glucose 94 Calcium 7.5 L Total Bilirubin 0.8 AST 79 H ALT 47 Alkaline Phosphatase 37 L Total Protein 5.5 L Albumin 2.3 L MTS Gel Crossmatch See Detail Assessment and Plan - Problem List (1) Fracture of clavicle, right, closed Code(s): S42.001A - Fracture of unspecified part of right clavicle, initial encounter for closed fracture Status: Acute Qualifiers: Encounter type: initial encounter Clavicle location: unspecified part of clavicle Fracture alignment: displaced Qualified Code(s): S42.001A - Fracture of unspecified part of right clavicle, initial encounter for closed fracture (2) Traumatic diastasis of symphysis pubis Code(s): S33.4XXA - Traumatic rupture of symphysis pubis, initial encounter Status: Acute Qualifiers: Encounter type: initial encounter Qualified Code(s): S33.4XXA - Traumatic rupture of symphysis pubis, initial encounter (3) Bilateral fracture of pubic rami Code(s): S32.591A - Other specified fracture of right pubis, initial encounter for closed fracture; S32.592A - Other specified fracture of left pubis, initial encounter for closed fracture Status: Acute Qualifiers: Encounter type: initial encounter Fracture type: closed Qualified Code(s) : S32.591A - Other specified fracture of right pubis, initial encounter for closed fracture; S32.592A - Other specified fracture of left pubis, initial encounter for closed fracture (4) Fracture acetabulum-closed Code(s): S32.409A - Unspecified fracture of unspecified acetabulum, initial encounter for closed fracture Status: Acute Qualifiers: Encounter type: initial encounter Sublocation of acetabulum: unspecified portion of acetabulum Laterality: unspecified laterality (5) Fracture, scapula closed Code(s): S42.109A - Fracture of unspecified part of scapula, unspecified shoulder, initial encounter for closed fracture Status: Acute Qualifiers: Encounter type: initial encounter Scapula location: other part of scapula Laterality: right Qualified Code(s): S42.191A - Fracture of other part of scapula, right shoulder, initial encounter for closed fracture - Assessment and Plan Right clavicle fracture ORIF POD 3 with right scapular fracture treated nonoperatively Minimal weightbearing right upper extremity. Continue to wear the sling. Occupational therapy and/or physical therapy for passive range of motion of shoulder with active motion of elbow wrist and fingers Maintain dressing times 5 days then remove and replace with Prim[place]. Beginning POD 10 begin adding Xeroform over incision to breakdown skin glue Bilateral acetabular fractures and pubic symphysis diastases status post external fixation POD 3 Nonweightbearing bilateral lower extremities Pin care twice daily Lovenox Further surgeries next week for pelvic ring and acetabular fractures. Overall stable.
[2018-06-20] MEDS: Morphine Inj 4 MG/ML Vial IV.PUSH PRN ×3 (00:08→17:45)
[2018-06-20] MEDS: Enoxaparin Inj 30 MG/0.3 ML Syringe SQ SCH (00:08)
[2018-06-20] MEDS: Methocarbamol 500 MG Tablet PO SCH ×3 (05:18→20:48)
--- NOTE | 2018-06-20 06:59 | P.PNOP ---
Subjective Interval history: POD 3 s/p ORIF right clavicle POD 3 s/p exfix pelvis doing well. reports difficulty with bowel movement. Physical Exam Vital signs: Vital Signs 06/19/18 08:21 06/19/18 08:26 06/19/18 12:00 Temperature 97.9 F 98.3 F Pulse Rate 78 117 H 118 H Respiratory Rate 18 17 17 Blood Pressure 124/59 L 120/59 L Pulse Oximetry 96 95 06/19/18 16:00 06/19/18 16:15 06/19/18 20:08 Temperature 98.8 F Pulse Rate 119 H 119 H 75 Respiratory Rate 17 18 18 Blood Pressure 115/60 Pulse Oximetry 95 06/19/18 21:57 06/19/18 22:10 06/20/18 00:11 Temperature 97.9 F Pulse Rate 120 H Respiratory Rate 20 18 17 Blood Pressure 124/62 Pulse Oximetry 95 06/20/18 00:28 06/20/18 03:05 06/20/18 03:06 Temperature 98.5 F Pulse Rate 120 H 105 H Respiratory Rate 18 22 Blood Pressure 115/56 L Pulse Oximetry 95 98 06/20/18 04:22 Temperature 98.1 F Pulse Rate 118 H Respiratory Rate 18 Blood Pressure 126/60 Pulse Oximetry 96 Intake & Output 06/19/18 06/19/18 06/20/18 06:59 18:59 06:59 Intake Total 100 / 100 Output Total 1450 / 1450 750 / 750 Balance -1350 / -1350 -750 / -750 Intake: IV 100 / 100 Ancef 2 GM Premix Inj 2 gm In 100 / 100 50 ml @ 100 mls/hr IV.SIG Q8H [facility] Rx#:[id number] Output: Urine Amount (Catheter) 1450 / 1450 750 / 750 Indwelling Temp Sensing 1450 / 1450 750 / 750 Catheter Other: Date of Last Bowel Movement 06/16/18 06/16/18 Narrative: pelvis: exfix in place. pin sites clean. nvi bilaterally RUE: dressing clean and dry. intact. NVI - Urinary Catheter Management Indwelling Temp Sensing Catheter Cath placed during this visit: yes Reason for continuing: Other continuation reason Insertion date: 06/16/18 Insertion time: 08:24 Results - Labs CBC & Chem 7: 06/19/18 04:54 06/19/18 04:54 Laboratory Results - last 24 hr 06/19/18 04:54 WBC Differential . Diff Scan Auto diff confirmed Assessment and Plan - Problem List (1) Fracture of clavicle, right, closed Code(s): S42.001A - Fracture of unspecified part of right clavicle, initial encounter for closed fracture Status: Acute Qualifiers: Encounter type: initial encounter Clavicle location: unspecified part of clavicle Fracture alignment: displaced Qualified Code(s): S42.001A - Fracture of unspecified part of right clavicle, initial encounter for closed fracture (2) Traumatic diastasis of symphysis pubis Code(s): S33.4XXA - Traumatic rupture of symphysis pubis, initial encounter Status: Acute Qualifiers: Encounter type: initial encounter Qualified Code(s): S33.4XXA - Traumatic rupture of symphysis pubis, initial encounter (3) Bilateral fracture of pubic rami Code(s): S32.591A - Other specified fracture of right pubis, initial encounter for closed fracture; S32.592A - Other specified fracture of left pubis, initial encounter for closed fracture Status: Acute Qualifiers: Encounter type: initial encounter Fracture type: closed Qualified Code(s) : S32.591A - Other specified fracture of right pubis, initial encounter for closed fracture; S32.592A - Other specified fracture of left pubis, initial encounter for closed fracture (4) Fracture acetabulum-closed Code(s): S32.409A - Unspecified fracture of unspecified acetabulum, initial encounter for closed fracture Status: Acute Qualifiers: Encounter type: initial encounter Sublocation of acetabulum: unspecified portion of acetabulum Laterality: unspecified laterality (5) Fracture, scapula closed Code(s): S42.109A - Fracture of unspecified part of scapula, unspecified shoulder, initial encounter for closed fracture Status: Acute Qualifiers: Encounter type: initial encounter Scapula location: other part of scapula Laterality: right Qualified Code(s): S42.191A - Fracture of other part of scapula, right shoulder, initial encounter for closed fracture - Assessment and Plan Right clavicle fracture ORIF POD 3 with right scapular fracture treated nonoperatively Pubic Symphysis diastasis with bilateral acetabulum fxs and rami fxs s/p exfix - POD 3 Minimal weightbearing right upper extremity. Continue to wear the sling. Occupational therapy and/or physical therapy for passive range of motion of shoulder with active motion of elbow wrist and fingers Maintain dressing times 5 days then remove and replace with [place]. Beginning POD 10 begin adding Xeroform over incision to breakdown skin glue NWB to BLE hold lovenox after AM dose pin care BID npo after [place] sign consents plan for surgery of right acetabulum tomorrow with [facility]
[2018-06-20] MEDS ORDERED: Bisacodyl 10 MG Supp RECTAL SCH (07:00)
[2018-06-20] MEDS ORDERED: Bisacodyl 10 MG Supp RECTAL ONE (07:16)
[2018-06-20] MEDS: Docusate Sodium 100 MG Capsule PO SCH ×2 (08:34→20:47)
[2018-06-20] MEDS: Pantoprazole Inj 40 MG Vial IV.PUSH SCH (08:34)
[2018-06-20] MEDS: Lidocaine 5% Patch T-DERMAL SCH (08:35)
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
[2018-06-20] MEDS: Sodium Chloride 0.9% 2 ML Flush BID IV.FLUSH SCH ×2 (17:37→20:47)
[2018-06-21] MEDS: Methocarbamol 500 MG Tablet PO SCH ×4 (00:56→21:47)
[2018-06-21] MEDS: Morphine Inj 4 MG/ML Vial IV.PUSH PRN ×3 (03:28→19:56)
[2018-06-21] MEDS ORDERED: Metoprolol Tartrate 25 MG Tablet PO ONE (07:30)
[2018-06-21] MEDS ORDERED: Sodium Chlor 0.9% Inj 500 ML IV.CONT ONE (07:30)
[2018-06-21] MEDS ORDERED: Chlorhexidine Gluconate 2% 1 Pack (2 Cloths) TOPICAL ONE (07:30)
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
[2018-06-21] MEDS ORDERED: TRANEXAMIC ACID IV.SIG SCH (08:30)
[2018-06-21] MEDS ORDERED: SODIUM CHLOR 0.9% IV.SIG SCH (08:30)
[2018-06-21] MEDS ORDERED: Sugammadex Inj 200 MG/2 ML Vial IV.PUSH ONE (10:22)
[2018-06-21] MEDS ORDERED: ceFAZolin Inj 1 GM Vial (Addvantage) IV.SIG ONE (10:34)
[2018-06-21] MEDS ORDERED: Sodium Chlor 0.9% Inj 250 ML IV.CONT ONE (11:11)
[2018-06-21] MEDS ORDERED: Lidocaine PF 1% Inj 5 ML Syringe INFILTRATN ONE (11:11)
[2018-06-21] MEDS ORDERED: Ketorolac Inj 30 MG/ML (IVP) Vial IV.PUSH ONE (11:11)
[2018-06-21 11:20] LABS: Baso # (Auto) 0.1 th/mm3 (0.0-0.2); Baso % (Auto) 0.4 % (0.0-2.0); Eos # (Auto) 0.1 th/mm3 (0.0-0.4); Eos % (Auto) 0.6 % (0.0-4.0); Hematocrit 24.6 % (35.0-46.0); Hemoglobin 8.7 gm/dL (11.6-15.3); Lymph # (Auto) 1.1 th/mm3 (1.0-4.8); Lymph % (Auto) 8.8 % (9.0-44.0); Mean Corpuscular HGB Conc 35.4 % (32.0-36.0); Mean Corpuscular Hemoglobin 31.9 pg (27.0-34.0); Mean Corpuscular Volume 90.2 fL (80.0-100.0); Mean Platelet Volume 7.8 fL (7.0-11.0); Mono # (Auto) 1.2 th/mm3 (0.0-0.9); Mono % (Auto) 10.2 % (0.0-8.0); Neut # (Auto) 9.5 th/mm3 (1.8-7.7); Platelet Count 238 th/mm3 (150-450); Red Blood Count 2.73 mil/mm3 (4.00-5.30); Red Cell Distribution Width 13.8 % (11.6-17.2); White Blood Count 11.9 th/mm3 (4.0-11.0)
[2018-06-21] MEDS ORDERED: Tobramycin Sulfate 1,200 MG Vial (for ortho/sterile core) OTHER ONE ×2 (12:11)
[2018-06-21 12:13] LABS: Eosinophils 1 % (0-4); Lymphocytes 8 % (9-44); Metamyelocytes 2 % (0-1); Monocytes 17 % (0-8); Myelocytes 2 % (0-0); Platelet Estimate Normal (Normal); Platelet Morphology Normal (Normal); Tallied Nucleated RBC 1 (0-0)
[2018-06-21] MEDS ORDERED: SODIUM CHLOR 0.9% IRRIGATION ONE (13:10)
[2018-06-21] MEDS ORDERED: GENTAMICIN IRRIGATION ONE (13:10)
[2018-06-21] MEDS ORDERED: Post-op Orders (for Pharmacy) OTHER STA (13:51)
[2018-06-21] MEDS ORDERED: ceFAZolin Inj 2,000 MG in Sodium Chlor 0.9% Inj 80 ML IV.SIG SCH (14:00)
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
[2018-06-21] MEDS ORDERED: *Ondansetron Inj 4 MG/2 ML Vial PERIprocedural Use ONLY ONE (15:00)
[2018-06-21] MEDS ORDERED: *Meperidine Inj 25 MG/ML Vial PERIprocedural Use ONLY ONE (15:00)
--- NOTE | 2018-06-21 15:10 | XR ---
EXAM DATE: 06/21/2018 3:03 PM EST AGE/SEX: 27 years / Female INDICATIONS: Right acetabulum ORIF. CLINICAL DATA: This is the patient's initial encounter. Patient reports that signs and symptoms have been present for 1 day and indicates a pain score of Nonresponsive. MEDICAL/SURGICAL HISTORY: Non-responsive. Non-responsive. COMPARISON: [facility] [place], PELVIS AP/INLET/OUTLET (3VWS), 06/17/2018. . FINDINGS: 4 spot intraoperative fluoroscopic views of the pelvis demonstrate plate and screw fixation of the ri ght acetabulum. CONCLUSION: Postop right acetabulum ORIF. Electronically signed by: Daniel Flannery MD Board Certified Radiologist 06/21/2018 3:08 PM EST
[2018-06-21 15:11] LABS: Baso # (Auto) 0.1 th/mm3 (0.0-0.2); Baso % (Auto) 0.4 % (0.0-2.0); Eos # (Auto) 0.1 th/mm3 (0.0-0.4); Eos % (Auto) 0.6 % (0.0-4.0); Hematocrit 23.5 % (35.0-46.0); Hemoglobin 8.1 gm/dL (11.6-15.3); Lymph # (Auto) 0.9 th/mm3 (1.0-4.8); Lymph % (Auto) 6.2 % (9.0-44.0); Mean Corpuscular HGB Conc 34.3 % (32.0-36.0); Mean Corpuscular Hemoglobin 31.4 pg (27.0-34.0); Mean Corpuscular Volume 91.6 fL (80.0-100.0); Mean Platelet Volume 7.6 fL (7.0-11.0); Mono # (Auto) 0.9 th/mm3 (0.0-0.9); Mono % (Auto) 6.3 % (0.0-8.0); Neut % (Auto) 86.5 % (16.0-70.0); Platelet Count 201 th/mm3 (150-450); Red Blood Count 2.57 mil/mm3 (4.00-5.30); Red Cell Distribution Width 13.7 % (11.6-17.2)
[2018-06-21] MEDS: Lidocaine 5% Patch T-DERMAL SCH (16:27)
[2018-06-21] MEDS: Docusate Sodium 100 MG Capsule PO SCH ×2 (16:27→21:47)
[2018-06-21] MEDS: Pantoprazole Inj 40 MG Vial IV.PUSH SCH (16:28)
[2018-06-21] MEDS: Sodium Chloride 0.9% 2 ML Flush BID IV.FLUSH SCH ×2 (16:28→21:52)
[2018-06-21 18:09] LABS: Lymphocytes 9 % (9-44); Metamyelocytes 7 % (0-1); Monocytes 10 % (0-8); Myelocytes 2 % (0-0)
[2018-06-21 18:12] LABS: Platelet Estimate Normal (Normal); Platelet Morphology Normal (Normal); Stomatocytes 1+
[2018-06-21] MEDS: ceFAZolin 2 GM Premix Inj 2 GM/50 ML PIGGYBACK IV.SIG SCH (20:00)
[2018-06-21] MEDS: Senna/Docusate Sodium 8.6/50 MG Tablet PO SCH (21:47)
[2018-06-22] MEDS: Vancomycin Inj 1,000 MG in Sodium Chlor 0.9% Inj 250 ML IV.SIG SCH ×2 (01:03→12:04)
[2018-06-22] MEDS: Morphine Inj 4 MG/ML Vial IV.PUSH PRN ×5 (01:04→22:19)
[2018-06-22] MEDS: ceFAZolin 2 GM Premix Inj 2 GM/50 ML PIGGYBACK IV.SIG SCH ×3 (03:44→20:51)
[2018-06-22] MEDS: Methocarbamol 500 MG Tablet PO SCH ×4 (05:54→22:19)
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
--- NOTE | 2018-06-22 07:08 | P.PNOP ---
Subjective Interval history: Still complains of some pain after surgery. No new complaints Physical Exam Vital signs: Vital Signs 06/21/18 07:15 06/21/18 08:31 06/21/18 14:38 Temperature 98.0 F 98.8 F Pulse Rate 118 H 108 H Respiratory Rate 18 20 20 Blood Pressure 119/59 L 133/75 Pulse Oximetry 95 99 06/21/18 14:45 06/21/18 15:00 06/21/18 15:15 Temperature Pulse Rate 104 H 105 H 101 H Respiratory Rate 19 17 15 Blood Pressure 131/73 125/63 135/69 Pulse Oximetry 98 96 96 06/21/18 15:30 06/21/18 15:45 06/21/18 15:51 Temperature Pulse Rate 97 H 97 H Respiratory Rate 16 16 Blood Pressure 127/71 120/67 Pulse Oximetry 96 100 100 06/21/18 16:00 06/21/18 20:00 06/22/18 00:00 Temperature 97.4 F L 98.3 F 98.1 F Pulse Rate 100 H 104 H 104 H Respiratory Rate 18 18 18 Blood Pressure 122/69 118/62 120/59 L Pulse Oximetry 98 100 99 06/22/18 00:02 Temperature Pulse Rate Respiratory Rate 18 Blood Pressure Pulse Oximetry Intake & Output 06/21/18 06/22/18 06/22/18 18:59 06:59 18:59 Intake Total 5020.6 / 5020.6 1300 / 1300 Output Total 1000 / 1000 Balance 4020.6 / 4020.6 1300 / 1300 Intake: IV 3120.6 / 3120.6 1300 / 1300 Gentamicin Inj 240 MG In NS Inj 3006 / 3006 3,000 ML @ As Directed IRRIGATION ONCE ONE Rx#: [id number] LR 1000 mL Inj 1,000 ML @ 90 1000 / 1000 mls/hr IV.CONT .Q11H7M [facility] Rx#: [id number] Cyklokapron Inj 1,460 MG In NS 114.6 / 114.6 Inj 100 ML @ 200 mls/hr IV.SIG PLASTIC ROLLER [facility] Rx#:[id number] Vancomycin Inj 1,000 MG In NS 250 / 250 Inj 250 ML @ 250 mls/hr IV.SIG Q12H RO Rx#:[id number] Ancef 2 GM Premix Inj 2 gm In 50 / 50 50 ml @ 100 mls/hr IV.SIG Q8H [facility] Rx#:[id number] Anesthesia Amount 1900 / 1900 Output: Estimated Blood Loss 500 / 500 Urine Amount (Catheter) 500 / 500 Indwelling Temp Sensing 500 / 500 Catheter Other: Date of Last Bowel Movement 06/22/18 Narrative: Right upper extremity: Clean dry dressing intact with sling in place. Neurovascularly intact with full extension flexion of all fingers External fixator in place over pelvis with clean pins and dressings. Clean dry dressings intact Bilateral lower extremities full range of motion neurovascular intact with good capillary refills and distal pulses. active dorsiflexion and plantarflexion of feet - Urinary Catheter Management Indwelling Temp Sensing Catheter Cath placed during this visit: yes Reason for continuing: Hourly intake/output Insertion date: 06/16/18 Insertion time: 08:24 Results - Labs CBC & Chem 7: 06/21/18 14:04 06/19/18 04:54 Laboratory Results - last 24 hr 06/21/18 06/21/18 06/21/18 09:30 11:07 14:04 WBC 11.9 H 15.0 H RBC 2.73 L 2.57 L Hgb 8.7 L 8.1 L Hct 24.6 L 23.5 L MCV 90.2 91.6 MCH 31.9 31.4 MCHC 35.4 34.3 RDW 13.8 13.7 Plt Count 238 D 201 MPV 7.8 7.6 Prelim Diff (Auto) Slide review pending Slide review pending Neut % (Auto) 80.0 H 86.5 H Lymph % (Auto) 8.8 L 6.2 L [place] % (Auto) 10.2 H 6.3 Eos % (Auto) 0.6 0.6 Baso % (Auto) 0.4 0.4 Neut # (Auto) 9.5 H 13.0 H Lymph # (Auto) 1.1 0.9 L [place] # (Auto) 1.2 H 0.9 Eos # (Auto) 0.1 0.1 Baso # (Auto) 0.1 0.1 WBC Differential Manual diff final Manual diff final Seg Neuts % (Manual) 65 70 Band Neuts % (Manual) 5 2 Lymphocytes % (Manual) 8 L 9 Monocytes % (Manual) 17 H 10 H Eosinophils % (Manual) 1 Metamyelocytes % (Man) 2 H 7 H Myelocytes % (Man) 2 H 2 H Abs Neuts (Manual) 8.8 H 12.2 H Nucleated RBCs/100 WBC 1 H Differential Comment . . Platelet Estimate Normal Normal Platelet Morphology Normal Normal Polychromasia 2.0 H 2.0 H Stomatocytes 1+ H Blood Type A Positive Antibody Screen Negative MTS Gel Crossmatch See Detail - Imaging Impressions Pelvis X-Ray 06/21/18 00:00 CONCLUSION: Postop right acetabulum ORIF. Assessment and Plan - Problem List (1) Fracture of clavicle, right, closed Code(s): S42.001A - Fracture of unspecified part of right clavicle, initial encounter for closed fracture Status: Acute Qualifiers: Qualified Code(s): S42.001A - Fracture of unspecified part of right clavicle , initial encounter for closed fracture (2) Traumatic diastasis of symphysis pubis Code(s): S33.4XXA - Traumatic rupture of symphysis pubis, initial encounter Status: Acute Qualifiers: Qualified Code(s): S33.4XXA - Traumatic rupture of symphysis pubis, initial encounter (3) Bilateral fracture of pubic rami Code(s): S32.591A - Other specified fracture of right pubis, initial encounter for closed fracture; S32.592A - Other specified fracture of left pubis, initial encounter for closed fracture Status: Acute Qualifiers: Qualified Code(s): S32.591A - Other specified fracture of right pubis, initial encounter for closed fracture; S32.592A - Other specified fracture of left pubis, initial encounter for closed fracture (4) Fracture acetabulum-closed Code(s): S32.409A - Unspecified fracture of unspecified acetabulum, initial encounter for closed fracture Status: Acute (5) Fracture, scapula closed Code(s): S42.109A - Fracture of unspecified part of scapula, unspecified shoulder, initial encounter for closed fracture Status: Acute Qualifiers: Qualified Code(s): S42.191A - Fracture of other part of scapula, right shoulder, initial encounter for closed fracture - Assessment and Plan Right clavicle fracture ORIF POD 4 with right scapular fracture treated nonoperatively Pubic Symphysis diastasis with bilateral acetabulum fxs and rami fxs s/p exfix - POD 4 ORIF right acetabulum POD 1 Minimal weightbearing right upper extremity. Continue to wear the sling. Occupational therapy and/or physical therapy for passive range of motion of shoulder with active motion of elbow wrist and fingers Maintain dressing times 5 days then remove and replace with Primapore. Beginning POD 10 begin adding Xeroform over incision to breakdown skin glue NWB to BLE Lovenox pin care BID Maintain dressing over posterior incision for 5 days unless drainage. Then dry dressings for 5 days. POD 10 begin adding Xeroform over incision line to help break skin glue down Radiation today to avoid heterotopic ossification X-ray this morning to reevaluate anterior pelvis
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
[2018-06-22 07:23] LABS: Baso % (Auto) 0.2 % (0.0-2.0); Eos # (Auto) 0.1 th/mm3 (0.0-0.4); Eos % (Auto) 0.7 % (0.0-4.0); Hematocrit 21.8 % (35.0-46.0); Hemoglobin 7.5 gm/dL (11.6-15.3); Lymph # (Auto) 1.4 th/mm3 (1.0-4.8); Lymph % (Auto) 14.9 % (9.0-44.0); Mean Corpuscular HGB Conc 34.6 % (32.0-36.0); Mean Corpuscular Hemoglobin 31.5 pg (27.0-34.0); Mono % (Auto) 10.4 % (0.0-8.0); Neut # (Auto) 7.1 th/mm3 (1.8-7.7); Neut % (Auto) 73.8 % (16.0-70.0); Platelet Count 217 th/mm3 (150-450); Red Blood Count 2.39 mil/mm3 (4.00-5.30); Red Cell Distribution Width 13.9 % (11.6-17.2); White Blood Count 9.7 th/mm3 (4.0-11.0)
[2018-06-22 07:44] LABS: Anion Gap 7 meq/L (5-15); Blood Urea Nitrogen 17 mg/dL (7-18); Carbon Dioxide 29.7 meq/L (21.0-32.0); Chloride 103 meq/L (98-107); Glomerular Filtration Rate Greater Than 89 mL/min (>89); Glucose,Random 87 mg/dL (74-106); Potassium 3.3 meq/L (3.5-5.1); Sodium 140 meq/L (136-145)
[2018-06-22 08:31] LABS: Lymphocytes 22 % (9-44); Monocytes 10 % (0-8); Myelocytes 5 % (0-0); Tallied Nucleated RBC 1 (0-0)
[2018-06-22 08:33] LABS: Dimorphic RBC Present; Platelet Estimate Normal (Normal); Platelet Morphology Normal (Normal); Polychromasia 2.9 % (0.0-1.9)
[2018-06-22] MEDS: Celecoxib 200 MG Capsule PO SCH (08:36)
[2018-06-22] MEDS: Pantoprazole Inj 40 MG Vial IV.PUSH SCH (08:36)
[2018-06-22] MEDS: Lidocaine 5% Patch T-DERMAL SCH (08:37)
[2018-06-22] MEDS: Docusate Sodium 100 MG Capsule PO SCH ×2 (08:42→20:52)
[2018-06-22] MEDS: Senna/Docusate Sodium 8.6/50 MG Tablet PO SCH ×2 (08:43→20:52)
[2018-06-22] MEDS: Sodium Chloride 0.9% 2 ML Flush BID IV.FLUSH SCH ×2 (08:43→20:55)
--- NOTE | 2018-06-22 09:11 | XR ---
EXAM DATE: 06/22/2018 9:07 AM EST AGE/SEX: 27 years / Female INDICATIONS: Pelvic pain post surgery. CLINICAL DATA: This is the patient's initial encounter. Patient reports that signs and symptoms have been present for 1 day and indicates a pain score of Nonresponsive. MEDICAL/SURGICAL HISTORY: None. . Pelvic surgery. COMPARISON: [facility] – [place] W/O CONTRAST, 06/16/2018. . FINDINGS: Presumed temperature probe overlies the pelvis. Plate and screw fixation hardware is noted overlying the right acetabulum. External fixation pins project over the bilateral iliac bones. There are skin s taples and subcutaneous air overlying the right lateral pelvis. At the level of the pubic symphysis, 1.9 cm transverse width is noted. CONCLUSION: Postsurgical changes are noted as above. Electronically signed by: Daniel Flannery MD Board Certified Radiologist 06/22/2018 9:10 AM EST
--- NOTE | 2018-06-22 09:13 | XR ---
EXAM DATE: 06/22/2018 9:06 AM EST AGE/SEX: 27 years / Female INDICATIONS: Chest pain. CLINICAL DATA: This is the patient's subsequent encounter. Patient reports that signs and symptoms h ave been present for 1 week and indicates a pain score of Nonresponsive. MEDICAL/SURGICAL HISTORY: Non-responsive. Non-responsive. COMPARISON: [facility] – [place], CHEST 1V SINGLE AP, 06/18/2018. . FINDINGS: Left lung base airspace consolidation is seen. There is mild haziness to the right lower lobe. Postsu rgical changes are again seen involving the right clavicle. The rest of the examination has not arroyo ed. . CONCLUSION: Left lung base consolidation and slightly medial right lung base atelectasis and/or infiltrate. Electronically signed by: Micha Tom MD Board Certified Radiologist 06/22/2018 9:12 AM EST
[2018-06-22] MEDS: Enoxaparin Inj 30 MG/0.3 ML Syringe SQ SCH (16:59)
[2018-06-23] MEDS: Vancomycin Inj 1,000 MG in Sodium Chlor 0.9% Inj 250 ML IV.SIG SCH ×2 (02:05→14:54)
[2018-06-23] MEDS: Enoxaparin Inj 30 MG/0.3 ML Syringe SQ SCH ×2 (02:05→14:53)
[2018-06-23] MEDS: Morphine Inj 4 MG/ML Vial IV.PUSH PRN ×4 (04:29→19:16)
[2018-06-23] MEDS: ceFAZolin 2 GM Premix Inj 2 GM/50 ML PIGGYBACK IV.SIG SCH ×2 (04:29→14:54)
[2018-06-23 05:35] LABS: Hematocrit 22.3 % (35.0-46.0); Hemoglobin 7.5 gm/dL (11.6-15.3)
[2018-06-23] MEDS: Methocarbamol 500 MG Tablet PO SCH ×3 (06:02→21:42)
--- NOTE | 2018-06-23 07:07 | P.PNOP ---
Subjective Interval history: Resting comfortably with no new complaints. Still has pain mostly through the pelvis Physical Exam Vital signs: Vital Signs 06/22/18 08:00 06/22/18 12:00 06/22/18 12:36 Temperature 98 F 99 F Pulse Rate 111 H 115 H Respiratory Rate 16 16 Blood Pressure 122/59 L 109/55 L Pulse Oximetry 98 92 L 98 06/22/18 16:00 06/22/18 19:18 06/22/18 23:15 Temperature 99.4 F 99.8 F H 99.5 F Pulse Rate 119 H 119 H 123 H Respiratory Rate 16 20 18 Blood Pressure 112/57 L 106/57 L 114/57 L Pulse Oximetry 92 L 94 L 93 L Intake & Output 06/22/18 06/23/18 06/23/18 18:59 06:59 18:59 Intake Total 1300 / 1300 2790 / 2790 Output Total 550 / 550 975 / 975 Balance 750 / 750 1815 / 1815 Weight 88.9 kg Intake: IV 1300 / 1300 1350 / 1350 LR 1000 mL Inj 1,000 ML @ 90 1000 / 1000 1000 / 1000 mls/hr IV.CONT .Q11H7M RO Rx#: [id number] Vancomycin Inj 1,000 MG In NS 250 / 250 250 / 250 Inj 250 ML @ 250 mls/hr IV.SIG Q12H RO Rx#:[id number] Ancef 2 GM Premix Inj 2 gm In 50 / 50 100 / 100 50 ml @ 100 mls/hr IV.SIG Q8H RO Rx#:[id number] Oral 1440 / 1440 Output: Urine Amount (Catheter) 550 / 550 975 / 975 Indwelling Temp Sensing 550 / 550 975 / 975 Catheter Other: Date of Last Bowel Movement 06/22/18 06/22/18 # Bowel Movements 0 Narrative: Right upper extremity: Clean dry dressings intact. Mild tenderness with range of motion of shoulder. No pain with elbow wrist range of motion. Intact sensation over the radial ulnar median nerve full extension and flexion of all fingers External fixator in place with clean dry pin sites. With Dr. Garnica we adjusted the external fixation bedside Bilateral lower extremities: Intact sensation distally. Active movement of ankle and toes. Good capillary refills and distal pulses - Urinary Catheter Management Indwelling Temp Sensing Catheter Cath placed during this visit: yes Reason for continuing: Hourly intake/output Insertion date: 06/16/18 Insertion time: 08:24 Results - Labs CBC & Chem 7: 06/23/18 05:00 06/22/18 06:33 Laboratory Results - last 24 hr 06/21/18 06/22/18 06/22/18 09:30 06:33 06:33 WBC 9.7 RBC 2.39 L Hgb 7.5 L Hct 21.8 L MCV 91.0 MCH 31.5 MCHC 34.6 RDW 13.9 Plt Count 217 MPV 8.0 Prelim Diff (Auto) Slide review pending Neut % (Auto) 73.8 H Lymph % (Auto) 14.9 Sterling % (Auto) 10.4 H Eos % (Auto) 0.7 Baso % (Auto) 0.2 Neut # (Auto) 7.1 Lymph # (Auto) 1.4 Sterling # (Auto) 1.0 H Eos # (Auto) 0.1 Baso # (Auto) 0.0 WBC Differential Manual diff final Seg Neuts % (Manual) 60 Band Neuts % (Manual) 3 Lymphocytes % (Manual) 22 Monocytes % (Manual) 10 H Myelocytes % (Man) 5 H Abs Neuts (Manual) 6.6 Nucleated RBCs/100 WBC 1 H Differential Comment . Platelet Estimate Normal Platelet Morphology Normal Dimorphic RBCs Present H Polychromasia 2.9 H Sodium 140 Potassium 3.3 L Chloride 103 Carbon Dioxide 29.7 Anion Gap 7 BUN 17 Creatinine 0.46 L Estimated GFR Greater than 89 Random Glucose 87 Calcium 8.0 L Blood Type A Positive Antibody Screen Negative MTS Gel Crossmatch See Detail 06/23/18 05:00 WBC RBC Hgb 7.5 L Hct 22.3 L MCV MCH MCHC RDW Plt Count MPV Prelim Diff (Auto) Neut % (Auto) Lymph % (Auto) Sterling % (Auto) Eos % (Auto) Baso % (Auto) Neut # (Auto) Lymph # (Auto) Sterling # (Auto) Eos # (Auto) Baso # (Auto) WBC Differential Seg Neuts % (Manual) Band Neuts % (Manual) Lymphocytes % (Manual) Monocytes % (Manual) Myelocytes % (Man) Abs Neuts (Manual) Nucleated RBCs/100 WBC Differential Comment Platelet Estimate Platelet Morphology Dimorphic RBCs Polychromasia Sodium Potassium Chloride Carbon Dioxide Anion Gap BUN Creatinine Estimated GFR Random Glucose Calcium Blood Type Antibody Screen MTS Gel Crossmatch - Imaging Impressions Chest X-Ray 06/22/18 06:00 CONCLUSION: Left lung base consolidation and slightly medial right lung base atelectasis and /or infiltrate. Pelvis X-Ray 06/22/18 08:00 Presumed temperature probe overlies the pelvis. Plate and screw fixation hardware is noted overlying the right acetabulum. External fixation pins project over the bilateral iliac bones. There are skin barry and subcutaneous air overlying the right lateral pelvis. At the level of the pubic symphysis, 1.9 cm transverse width is noted. CONCLUSION: Postsurgical changes are noted as above. Assessment and Plan - Problem List (1) Fracture of clavicle, right, closed Code(s): S42.001A - Fracture of unspecified part of right clavicle, initial encounter for closed fracture Status: Acute Qualifiers: Encounter type: initial encounter Clavicle location: unspecified part of clavicle Fracture alignment: displaced Qualified Code(s): S42.001A - Fracture of unspecified part of right clavicle, initial encounter for closed fracture (2) Traumatic diastasis of symphysis pubis Code(s): S33.4XXA - Traumatic rupture of symphysis pubis, initial encounter Status: Acute Qualifiers: Encounter type: initial encounter Qualified Code(s): S33.4XXA - Traumatic rupture of symphysis pubis, initial encounter (3) Bilateral fracture of pubic rami Code(s): S32.591A - Other specified fracture of right pubis, initial encounter for closed fracture; S32.592A - Other specified fracture of left pubis, initial encounter for closed fracture Status: Acute Qualifiers: Encounter type: initial encounter Fracture type: closed Qualified Code(s) : S32.591A - Other specified fracture of right pubis, initial encounter for closed fracture; S32.592A - Other specified fracture of left pubis, initial encounter for closed fracture (4) Fracture acetabulum-closed Code(s): S32.409A - Unspecified fracture of unspecified acetabulum, initial encounter for closed fracture Status: Acute Qualifiers: Encounter type: initial encounter Sublocation of acetabulum: unspecified portion of acetabulum Laterality: unspecified laterality (5) Fracture, scapula closed Code(s): S42.109A - Fracture of unspecified part of scapula, unspecified shoulder, initial encounter for closed fracture Status: Acute Qualifiers: Encounter type: initial encounter Scapula location: other part of scapula Laterality: right Qualified Code(s): S42.191A - Fracture of other part of scapula, right shoulder, initial encounter for closed fracture - Assessment and Plan Right clavicle fracture ORIF POD 5 with right scapular fracture treated nonoperatively Pubic Symphysis diastasis with bilateral acetabulum fxs and rami fxs s/p exfix - POD 5 ORIF right acetabulum POD 2 Minimal weightbearing right upper extremity. Continue to wear the sling. Occupational therapy and/or physical therapy for passive range of motion of shoulder with active motion of elbow wrist and fingers Maintain dressing times 5 days then remove and replace with Primapore. Beginning POD 10 begin adding Xeroform over incision to breakdown skin glue NWB to BLE Lovenox pin care BID Maintain dressing over posterior incision for 5 days unless drainage. Then dry dressings for 5 days. POD 10 begin adding Xeroform over incision line to help break skin glue down Radiation today to avoid heterotopic ossification
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
[2018-06-23] MEDS: Docusate Sodium 100 MG Capsule PO SCH ×2 (09:03→20:14)
[2018-06-23] MEDS: Celecoxib 200 MG Capsule PO SCH (09:03)
[2018-06-23] MEDS: Senna/Docusate Sodium 8.6/50 MG Tablet PO SCH ×2 (09:03→20:14)
[2018-06-23] MEDS: Pantoprazole Inj 40 MG Vial IV.PUSH SCH (09:03)
[2018-06-23] MEDS: Sodium Chloride 0.9% 2 ML Flush BID IV.FLUSH SCH ×2 (09:04→20:18)
[2018-06-23] MEDS: Lidocaine 5% Patch T-DERMAL SCH (09:04)
--- NOTE | 2018-06-23 14:05 | XR ---
EXAM DATE: 06/23/2018 1:31 PM EST AGE/SEX: 27 years / Female INDICATIONS: Pelvic pain post external fixator adjustment. CLINICAL DATA: This is the patient's subsequent encounter. Patient reports that signs and symptoms h ave been present for 2 days and indicates a pain score of 10/10. MEDICAL/SURGICAL HISTORY: None. . ORIF of pelvis. COMPARISON: [facility] – [place], PELVIS AP/INLET/OUTLET (3VWS), 06/22/2018. [place], CT SIMULATION, 06/22/2018. . FINDINGS: There is a stable appearance of the pelvis with mild pubic diastases, nondisplaced right inferior and left inferior pubic rami fractures. External fixation hardware overlies the pelvis and acetabulum on the left. Plate and screw fixation of the right acetabulum noted. CONCLUSION: Stable postsurgical changes Electronically signed by: Daniel Flannery MD Board Certified Radiologist 06/23/2018 2:03 PM EST
--- NOTE | 2018-06-23 15:09 | P.PNWCN ---
Wound Care Nurse Consult Description: Received pressure ulcer consult for L buttock evaluation for specialty bed. Communicated with: CODI Segundo [address] [place] [address] and Renita Shaver APRN trauma Recommendation: 1.Please cleanse wound to R buttock area with normal saline or wound cleanser and pat dry. 2. Apply absorbent tegaderm to wound and leave in place for 5 days and change as needed if saturated or dislodged. 3. Please reposition patient from L side to R side every 2 hours limiting time spent on back to P.T. and meals. 4. Please place patient on k4 bed from formerly [facility] when it arrives. 5. Do not use cotton pads on low airloss bed Wound/Pressure Injury - Wound Right Buttocks Wound Staging: Stage II Wound Assessment: Ongoing Wound Type: Pressure Injury Is This a Chronic Wound: No Requested from Provider a Wound Care Consult: Yes Length (cm): 3.2 Width (cm): 1.1 Depth (cm): 0.1 (~<0.1cm) Wound Bed Appearance: Onida Wound Bed Appearance: 100% pink partial thickness wound Surrounding Tissue Appearance: Blanched/Dull Drainage Amount: None Drainage Odor: No Odor Dressing Status: Changed Primary Dressing: versatel one Cover Dressing: bordered gauze Wound Dressing Change Date: 06/23/18 Wound Margin Description: Wound margins are well defined with loose friable skin at wound edges. - Additional Information Patient seen on [address] [place] [address] for L buttock pressure ulcer. Patient has R buttock stage II. Patient has pelvic stabilizing device in place and is laying positioned on bottom with proposal manager writer's arrival. Patient was seen today with CODI Wyatt and proposal manager writer.Patient was positioned toward the R side with total assistance of RONI , , Yoselin KINCAID and CODI Segundo. Patient is noted with open partial thickness wound to R buttock. Wound bed is 100% pink and appears to have mixed etiology of pressure, moisture and friction. Wound was cleansed with normal saline and patted dry. Applied Versatel one in place and covered wound with bordered gauze. Patient is going to procedure and RN will apply dressing that is recommended when patient returns. Assisted CODI Beckford CNA and Yoselin KINCAID [facility].
[2018-06-24] MEDS: Enoxaparin Inj 30 MG/0.3 ML Syringe SQ SCH (03:12)
[2018-06-24] MEDS: Methocarbamol 500 MG Tablet PO SCH ×3 (05:34→21:26)
[2018-06-24] MEDS: Morphine Inj 4 MG/ML Vial IV.PUSH PRN ×2 (05:35→16:10)
--- NOTE | 2018-06-24 06:57 | P.PNOP ---
Subjective Interval history: Patient is awake and alert. She still complains of pelvic pain. She has pain in the posterior pelvis and right hip. Physical Exam Vital signs: Vital Signs 06/23/18 08:00 06/23/18 19:34 06/23/18 23:33 Temperature 99.1 F 98.2 F 98.5 F Pulse Rate 116 H 108 H 110 H Respiratory Rate 19 16 16 Blood Pressure 123/65 114/65 130/62 Pulse Oximetry 98 93 L 95 Intake & Output 06/23/18 06/23/18 06/24/18 06:59 18:59 06:59 Intake Total 2790 / 2790 2300 / 2300 Output Total 975 / 975 700 / 700 Balance 1815 / 1815 2300 / 2300 -700 / -700 Weight 88.9 kg 90.7 kg Intake: IV 1350 / 1350 2300 / 2300 LR 1000 mL Inj 1,000 ML @ 90 1000 / 1000 2000 / 2000 mls/hr IV.CONT .Q11H7M RO Rx#: [id number] Vancomycin Inj 1,000 MG In NS 250 / 250 250 / 250 Inj 250 ML @ 250 mls/hr IV.SIG Q12H RO Rx#:[id number] Ancef 2 GM Premix Inj 2 gm In 100 / 100 50 / 50 50 ml @ 100 mls/hr IV.SIG Q8H RO Rx#:[id number] Oral 1440 / 1440 Output: Urine 700 / 700 Urine Amount (Catheter) 975 / 975 Indwelling Temp Sensing 975 / 975 Catheter Other: # Voids 4 Date of Last Bowel Movement 06/22/18 06/22/18 06/22/18 # Bowel Movements 0 Narrative: Patient is awake and alert. Clean dry dressings in place right hip. External fixator pin sites clean and dry. Sensation intact both feet. - Urinary Catheter Management Indwelling Temp Sensing Catheter Cath placed during this visit: yes, but has since been removed by the nurse Reason for continuing: Hourly intake/output Insertion date: 06/16/18 Insertion time: 08:24 Removal date: 06/23/18 Removal time: 06:30 Results - Labs CBC & Chem 7: 06/23/18 05:00 06/22/18 06:33 - Imaging Impressions Pelvis X-Ray 06/23/18 00:00 CONCLUSION: Stable postsurgical changes Assessment and Plan - Problem List (1) Fracture of clavicle, right, closed Code(s): S42.001A - Fracture of unspecified part of right clavicle, initial encounter for closed fracture Status: Acute Qualifiers: Encounter type: initial encounter Clavicle location: unspecified part of clavicle Fracture alignment: displaced Qualified Code(s): S42.001A - Fracture of unspecified part of right clavicle, initial encounter for closed fracture (2) Traumatic diastasis of symphysis pubis Code(s): S33.4XXA - Traumatic rupture of symphysis pubis, initial encounter Status: Acute Qualifiers: Encounter type: initial encounter Qualified Code(s): S33.4XXA - Traumatic rupture of symphysis pubis, initial encounter (3) Bilateral fracture of pubic rami Code(s): S32.591A - Other specified fracture of right pubis, initial encounter for closed fracture; S32.592A - Other specified fracture of left pubis, initial encounter for closed fracture Status: Acute Qualifiers: Encounter type: initial encounter Fracture type: closed Qualified Code(s) : S32.591A - Other specified fracture of right pubis, initial encounter for closed fracture; S32.592A - Other specified fracture of left pubis, initial encounter for closed fracture (4) Fracture acetabulum-closed Code(s): S32.409A - Unspecified fracture of unspecified acetabulum, initial encounter for closed fracture Status: Acute Qualifiers: Encounter type: initial encounter Sublocation of acetabulum: unspecified portion of acetabulum Laterality: unspecified laterality (5) Fracture, scapula closed Code(s): S42.109A - Fracture of unspecified part of scapula, unspecified shoulder, initial encounter for closed fracture Status: Acute Qualifiers: Encounter type: initial encounter Scapula location: other part of scapula Laterality: right Qualified Code(s): S42.191A - Fracture of other part of scapula, right shoulder, initial encounter for closed fracture - Assessment and Plan Right clavicle fracture ORIF POD 6 with right scapular fracture treated nonoperatively Pubic Symphysis diastasis with bilateral acetabulum fxs and rami fxs s/p exfix - POD 6 ORIF right acetabulum POD 3 Non-weightbearing right upper extremity. Continue to wear the sling. Occupational therapy and/or physical therapy for passive range of motion of shoulder with active motion of elbow wrist and fingers Maintain dressing times 5 days then remove and replace with Primapore. Beginning POD 10 begin adding Xeroform over incision to breakdown skin glue NWB to BLE Lovenox pin care BID Maintain dressing over posterior incision for 5 days unless drainage. Then dry dressings for 5 days. POD 10 begin adding Xeroform over incision line to help break skin glue down Radiation XRT completed on 06/23/2018 Case management for discharge planning to SNF--[facility]th[facility] cleared for discharge
[2018-06-24] MEDS: Docusate Sodium 100 MG Capsule PO SCH ×2 (08:26→21:26)
[2018-06-24] MEDS: Celecoxib 200 MG Capsule PO SCH (08:26)
[2018-06-24] MEDS: Pantoprazole Inj 40 MG Vial IV.PUSH SCH (08:26)
[2018-06-24] MEDS: Senna/Docusate Sodium 8.6/50 MG Tablet PO SCH ×2 (08:26→21:26)
[2018-06-24] MEDS: Lidocaine 5% Patch T-DERMAL SCH (08:27)
[2018-06-24] MEDS: Sodium Chloride 0.9% 2 ML Flush BID IV.FLUSH SCH ×2 (08:27→21:27)
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
[2018-06-24] MEDS: Enoxaparin Inj 40 MG/0.4 ML Syringe SQ SCH (16:11)
[2018-06-25] MEDS: Morphine Inj 4 MG/ML Vial IV.PUSH PRN ×3 (01:13→14:21)
[2018-06-25] MEDS: Methocarbamol 500 MG Tablet PO SCH ×4 (06:27→21:07)
[2018-06-25] MEDS: Enoxaparin Inj 40 MG/0.4 ML Syringe SQ SCH ×2 (06:29→18:17)
[2018-06-25 07:12] LABS: Baso % (Auto) 0.2 % (0.0-2.0); Eos # (Auto) 0.1 th/mm3 (0.0-0.4); Eos % (Auto) 1.4 % (0.0-4.0); Hematocrit 24.7 % (35.0-46.0); Hemoglobin 8.3 gm/dL (11.6-15.3); Lymph % (Auto) 10.9 % (9.0-44.0); Mean Corpuscular HGB Conc 33.7 % (32.0-36.0); Mean Corpuscular Hemoglobin 30.3 pg (27.0-34.0); Mean Corpuscular Volume 89.9 fL (80.0-100.0); Mean Platelet Volume 7.6 fL (7.0-11.0); Mono # (Auto) 0.7 th/mm3 (0.0-0.9); Mono % (Auto) 7.8 % (0.0-8.0); Neut # (Auto) 7.4 th/mm3 (1.8-7.7); Neut % (Auto) 79.7 % (16.0-70.0); Platelet Count 382 th/mm3 (150-450); Red Blood Count 2.74 mil/mm3 (4.00-5.30); Red Cell Distribution Width 14.3 % (11.6-17.2); White Blood Count 9.2 th/mm3 (4.0-11.0)
[2018-06-25 07:43] LABS: Anion Gap 8 meq/L (5-15); Blood Urea Nitrogen 14 mg/dL (7-18); Calcium 8.6 mg/dL (8.5-10.1); Carbon Dioxide 27.4 meq/L (21.0-32.0); Chloride 103 meq/L (98-107); Glomerular Filtration Rate Greater Than 89 mL/min (>89); Glucose,Random 99 mg/dL (74-106); Potassium 3.5 meq/L (3.5-5.1); Sodium 138 meq/L (136-145)
[2018-06-25 08:57] LABS: Eosinophils 4 % (0-4); Lymphocytes 11 % (9-44); Metamyelocytes 2 % (0-1); Monocytes 3 % (0-8); Platelet Estimate Normal (Normal); Platelet Morphology Clumped (Normal)
[2018-06-25 08:58] LABS: Basophilic Stippling Moderate; Polychromasia 2.6 % (0.0-1.9)
[2018-06-25] MEDS: Lidocaine 5% Patch T-DERMAL SCH (09:25)
[2018-06-25] MEDS: Docusate Sodium 100 MG Capsule PO SCH (09:26)
[2018-06-25] MEDS: Senna/Docusate Sodium 8.6/50 MG Tablet PO SCH ×2 (09:26→21:07)
[2018-06-25] MEDS: Sodium Chloride 0.9% 2 ML Flush BID IV.FLUSH SCH ×2 (09:26→21:00)
[2018-06-25] MEDS: Celecoxib 200 MG Capsule PO SCH (09:26)
--- NOTE | 2018-06-25 11:00 | XR ---
EXAM DATE: 06/25/2018 10:39 AM EST AGE/SEX: 27 years / Female INDICATIONS: Patient presents with abdominal distention and pain post op. CLINICAL DATA: This is the patient's initial encounter. Patient reports that signs and symptoms have been present for 1 week and indicates a pain score of 7/10. MEDICAL/SURGICAL HISTORY: None. . pelvic external fixator [place] [facility] [place]. . FINDINGS: There is diffusely distended colon with features most typical of a ileus. No free air seen. Distenti on measures up to 9.5 cm. Patient has external fixation of the bony pelvis. Changes of recent open reduction internal fixation of the right acetabulum noted. There are vascular coils in the right hemipelvis. CONCLUSION: Moderate to severe large bowel distention with features most typical of a diffuse colonic ileus. Electronically signed by: Bravo Nagy MD Board Certified Radiologist 06/25/2018 10:59 AM EST
[2018-06-25] MEDS: Sod Chloride 0.9% Inj 1,000 ML IV.CONT SCH (11:59)
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
[2018-06-26] MEDS: Docusate Sodium 100 MG Capsule PO SCH ×3 (03:51→23:58)
[2018-06-26] MEDS: Sod Chloride 0.9% Inj 1,000 ML IV.CONT SCH ×2 (03:53→12:08)
[2018-06-26] MEDS: Methocarbamol 500 MG Tablet PO SCH ×3 (06:29→21:33)
[2018-06-26] MEDS: Enoxaparin Inj 40 MG/0.4 ML Syringe SQ SCH ×2 (06:30→18:00)
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
[2018-06-26] MEDS: Celecoxib 200 MG Capsule PO SCH (09:41)
[2018-06-26] MEDS: Lidocaine 5% Patch T-DERMAL SCH (09:42)
[2018-06-26] MEDS: Sodium Chloride 0.9% 2 ML Flush BID IV.FLUSH SCH ×2 (09:42→23:58)
[2018-06-26] MEDS: Senna/Docusate Sodium 8.6/50 MG Tablet PO SCH ×2 (09:42→23:58)
[2018-06-26] MEDS: Morphine Inj 4 MG/ML Vial IV.PUSH PRN (09:46)
[2018-06-26] MEDS: oxyCODONE/Acetaminophen 10/325 Tablet PO PRN ×2 (16:56→21:34)
[2018-06-27] MEDS: oxyCODONE/Acetaminophen 10/325 Tablet PO PRN ×3 (04:09→22:21)
[2018-06-27] MEDS: Methocarbamol 500 MG Tablet PO SCH ×3 (06:30→22:22)
[2018-06-27] MEDS: Enoxaparin Inj 40 MG/0.4 ML Syringe SQ SCH ×2 (07:00→18:45)
[2018-06-27] MEDS: Lidocaine 5% Patch T-DERMAL SCH (08:42)
[2018-06-27] MEDS: Celecoxib 200 MG Capsule PO SCH (08:51)
[2018-06-27] MEDS: Sodium Chloride 0.9% 2 ML Flush BID IV.FLUSH SCH ×2 (08:55→22:22)
[2018-06-27] MEDS: Docusate Sodium 100 MG Capsule PO SCH ×2 (08:55→22:22)
[2018-06-27] MEDS: Senna/Docusate Sodium 8.6/50 MG Tablet PO SCH ×2 (08:55→22:22)
[2018-06-27] MEDS: Sod Chloride 0.9% Inj 1,000 ML IV.CONT SCH ×2 (09:04→11:04)
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
[2018-06-28] MEDS: Methocarbamol 500 MG Tablet PO SCH ×3 (05:42→22:00)
--- NOTE | 2018-06-28 06:26 | P.PNOP ---
Subjective Interval history: Resting comfortably with no new complaints Physical Exam Vital signs: Vital Signs 06/27/18 08:00 06/27/18 12:00 06/27/18 16:00 Temperature 98.2 F 97.9 F 98.1 F Pulse Rate 90 91 H 90 Respiratory Rate 18 18 18 Blood Pressure 112/60 129/65 121/70 Pulse Oximetry 96 100 98 06/27/18 20:18 06/27/18 22:55 06/27/18 23:34 Temperature 98.6 F 98.7 F Pulse Rate 95 H 86 Respiratory Rate 16 17 16 Blood Pressure 114/56 L 126/62 Pulse Oximetry 99 97 06/28/18 04:41 Temperature Pulse Rate Respiratory Rate 17 Blood Pressure Pulse Oximetry Intake & Output 06/27/18 06/27/18 06/28/18 06:59 18:59 06:59 Intake Total 1060 / 1060 1000 / 1000 Output Total 1300 / 1300 1300 / 1300 Balance -240 / -240 -300 / -300 Weight 90.6 kg Intake: IV 1000 / 1000 1000 / 1000 NS Inj 1,000 ML @ 84 mls/hr IV. 1000 / 1000 1000 / 1000 CONT .[id number] [facility] Rx#:[id number] Oral 60 / 60 Output: Urine 1300 / 1300 1300 / 1300 Other: Date of Last Bowel Movement 06/25/18 06/27/18 06/27/18 # Bowel Movements 1 2 Narrative: Right upper extremity: Clean dry dressing intact with sling in place. Neurovascularly intact with full extension flexion of all fingers External fixator in place over pelvis with clean pins and dressings. Clean dry dressings intact Bilateral lower extremities full range of motion neurovascular intact with good capillary refills and distal pulses. active dorsiflexion and plantarflexion of feet - Urinary Catheter Management Indwelling Temp Sensing Catheter Cath placed during this visit: yes, but has since been removed by the nurse Reason for continuing: Other continuation reason Insertion date: 06/16/18 Insertion time: 08:24 Removal date: 06/23/18 Removal time: 06:30 Results - Labs CBC & Chem 7: 06/25/18 06:30 06/25/18 06:30 Assessment and Plan - Problem List (1) Fracture of clavicle, right, closed Code(s): S42.001A - Fracture of unspecified part of right clavicle, initial encounter for closed fracture Status: Acute Qualifiers: Encounter type: initial encounter Clavicle location: unspecified part of clavicle Fracture alignment: displaced Qualified Code(s): S42.001A - Fracture of unspecified part of right clavicle, initial encounter for closed fracture (2) Traumatic diastasis of symphysis pubis Code(s): S33.4XXA - Traumatic rupture of symphysis pubis, initial encounter Status: Acute Qualifiers: Encounter type: initial encounter Qualified Code(s): S33.4XXA - Traumatic rupture of symphysis pubis, initial encounter (3) Bilateral fracture of pubic rami Code(s): S32.591A - Other specified fracture of right pubis, initial encounter for closed fracture; S32.592A - Other specified fracture of left pubis, initial encounter for closed fracture Status: Acute Qualifiers: Encounter type: initial encounter Fracture type: closed Qualified Code(s) : S32.591A - Other specified fracture of right pubis, initial encounter for closed fracture; S32.592A - Other specified fracture of left pubis, initial encounter for closed fracture (4) Fracture acetabulum-closed Code(s): S32.409A - Unspecified fracture of unspecified acetabulum, initial encounter for closed fracture Status: Acute Qualifiers: Encounter type: initial encounter Sublocation of acetabulum: unspecified portion of acetabulum Laterality: unspecified laterality (5) Fracture, scapula closed Code(s): S42.109A - Fracture of unspecified part of scapula, unspecified shoulder, initial encounter for closed fracture Status: Acute Qualifiers: Encounter type: initial encounter Scapula location: other part of scapula Laterality: right Qualified Code(s): S42.191A - Fracture of other part of scapula, right shoulder, initial encounter for closed fracture - Assessment and Plan Right clavicle fracture ORIF POD 6 with right scapular fracture treated nonoperatively Pubic Symphysis diastasis with bilateral acetabulum fxs and rami fxs s/p exfix - POD 10 ORIF right acetabulum POD 7 Non-weightbearing right upper extremity. Continue to wear the sling. Occupational therapy and/or physical therapy for passive range of motion of shoulder with active motion of elbow wrist and fingers Maintain dressing times 5 days then remove and replace with [place]. Beginning POD 10 begin adding Xeroform over incision to breakdown skin glue NWB to BLE Lovenox pin care BID Maintain dressing over posterior incision for 5 days unless drainage. Then dry dressings for 5 days. POD 10 begin adding Xeroform over incision line to help break skin glue down Re-x-ray pelvis today NPO after MN hold lovenox
[2018-06-28] MEDS: Lidocaine 5% Patch T-DERMAL SCH (08:32)
[2018-06-28] MEDS: Celecoxib 200 MG Capsule PO SCH (08:32)
[2018-06-28] MEDS: Docusate Sodium 100 MG Capsule PO SCH ×2 (08:32→22:05)
[2018-06-28] MEDS: Sodium Chloride 0.9% 2 ML Flush BID IV.FLUSH SCH ×2 (08:32→22:05)
[2018-06-28] MEDS: Senna/Docusate Sodium 8.6/50 MG Tablet PO SCH ×2 (08:33→22:00)
[2018-06-28] MEDS: oxyCODONE/Acetaminophen 10/325 Tablet PO PRN ×2 (11:18→17:53)
--- NOTE | 2018-06-28 11:52 | XR ---
EXAM DATE: 06/28/2018 11:46 AM EST AGE/SEX: 27 years / Female INDICATIONS: Fracture. CLINICAL DATA: This is the patient's initial encounter. Patient reports that signs and symptoms have been present for 1 week and indicates a pain score of 7/10. MEDICAL/SURGICAL HISTORY: None. . orif pelvis COMPARISON: [facility] – [place], PELVIS AP/INLET/OUTLET (3VWS), 06/23/2018. . FINDINGS: There are fractures of right inferior pubic ramus which are grossly aligned. External fixat ion devices are again seen with sideplate and multiple screws involving the right iliac bone. Mild sy mphysis pubis diastases is again seen not changed. CONCLUSION: No appreciable change. Electronically signed by: Micha Tom MD Board Certified Radiologist 06/28/2018 11:51 AM EST
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
[2018-06-28] MEDS: Morphine Inj 4 MG/ML Vial IV.PUSH PRN (21:58)
[2018-06-29] MEDS: Morphine Inj 4 MG/ML Vial IV.PUSH PRN (04:30)
[2018-06-29] MEDS ORDERED: Sodium Chlor 0.9% Inj 500 ML IV.CONT ONE (05:15)
[2018-06-29] MEDS ORDERED: Chlorhexidine Gluconate 2% 1 Pack (2 Cloths) TOPICAL ONE ×2 (05:15→08:07)
[2018-06-29] MEDS: Methocarbamol 500 MG Tablet PO SCH ×3 (05:30→22:28)
--- NOTE | 2018-06-29 06:40 | P.PNOP ---
Subjective Interval history: POD 12 s/p ORIF right clavicle POD 8 s/p ORIF right acetabulum s/p exfix pubic symphysis no changes Physical Exam Vital signs: Vital Signs 06/28/18 08:00 06/28/18 12:00 06/28/18 16:00 Temperature 97.8 F 98.3 F 97.8 F Pulse Rate 86 90 80 Respiratory Rate 16 16 18 Blood Pressure 121/56 L 121/59 L 121/60 Pulse Oximetry 98 97 98 06/28/18 19:12 06/28/18 20:25 06/28/18 22:00 Temperature 98.1 F Pulse Rate 85 Respiratory Rate 18 15 18 Blood Pressure 116/66 Pulse Oximetry 98 06/29/18 00:06 06/29/18 04:18 06/29/18 04:30 Temperature 98.1 F 98.3 F Pulse Rate 88 89 Respiratory Rate 16 18 18 Blood Pressure 115/62 116/64 Pulse Oximetry 98 97 Intake & Output 06/28/18 06/28/18 06/29/18 06:59 18:59 06:59 Intake Total 860 / 860 360 / 360 Output Total 850 / 850 1400 / 1400 800 / 800 Balance -1400 / -1400 -440 / -440 Weight 93.3 kg 90.3 kg Intake: Oral 860 / 860 360 / 360 Output: Urine 850 / 850 1400 / 1400 800 / 800 Other: # Voids 1 Date of Last Bowel Movement 06/27/18 06/28/18 06/28/18 # Bowel Movements 0 2 0 Narrative: RUE: dressings clean and dry. intact. nvi pelvis: exfix in place. pin sites clean. dressings over right hip clean and dry. nvi bilaterally - Urinary Catheter Management Indwelling Temp Sensing Catheter Cath placed during this visit: yes, but has since been removed by the nurse Reason for continuing: Hourly intake/output Insertion date: 06/16/18 Insertion time: 08:24 Removal date: 06/23/18 Removal time: 06:30 Results - Labs CBC & Chem 7: 06/25/18 06:30 06/25/18 06:30 - Imaging Impressions Pelvis X-Ray 06/28/18 00:00 CONCLUSION: No appreciable change. Assessment and Plan - Problem List (1) Fracture of clavicle, right, closed Code(s): S42.001A - Fracture of unspecified part of right clavicle, initial encounter for closed fracture Status: Acute Qualifiers: Encounter type: initial encounter Clavicle location: unspecified part of clavicle Fracture alignment: displaced Qualified Code(s): S42.001A - Fracture of unspecified part of right clavicle, initial encounter for closed fracture (2) Traumatic diastasis of symphysis pubis Code(s): S33.4XXA - Traumatic rupture of symphysis pubis, initial encounter Status: Acute Qualifiers: Encounter type: initial encounter Qualified Code(s): S33.4XXA - Traumatic rupture of symphysis pubis, initial encounter (3) Bilateral fracture of pubic rami Code(s): S32.591A - Other specified fracture of right pubis, initial encounter for closed fracture; S32.592A - Other specified fracture of left pubis, initial encounter for closed fracture Status: Acute Qualifiers: Encounter type: initial encounter Fracture type: closed Qualified Code(s) : S32.591A - Other specified fracture of right pubis, initial encounter for closed fracture; S32.592A - Other specified fracture of left pubis, initial encounter for closed fracture (4) Fracture acetabulum-closed Code(s): S32.409A - Unspecified fracture of unspecified acetabulum, initial encounter for closed fracture Status: Acute Qualifiers: Encounter type: initial encounter Sublocation of acetabulum: unspecified portion of acetabulum Laterality: unspecified laterality (5) Fracture, scapula closed Code(s): S42.109A - Fracture of unspecified part of scapula, unspecified shoulder, initial encounter for closed fracture Status: Acute Qualifiers: Encounter type: initial encounter Scapula location: other part of scapula Laterality: right Qualified Code(s): S42.191A - Fracture of other part of scapula, right shoulder, initial encounter for closed fracture - Assessment and Plan 1) Right Clavicle Fx s/p ORIF - POD 12 2) Right Acetabulum fx s/p ORIF - POD 8 3) Pubic Symphysis Diastasis s/p exfix -xrays of pelvis show continued diastasis of symphysis of 1.2cm. Had long discussion with patient regarding treatment options. Symphysis is well aligned, but not perfect. Gave patient the option of leaving alone, in which case she would do reasonably well. Or taking her to surgery for ORIF of symphysis which would likely yield slightly less pain in the long run. Patient has elected to proceed with surgery. will sign consents and proceed with ORIF of symphysis this AM.
[2018-06-29] MEDS ORDERED: ceFAZolin Inj 1 GM Vial (Addvantage) IV.SIG ONE (07:03)
[2018-06-29] MEDS ORDERED: Gelatin Size 100 Topical Foam ONE (07:03)
[2018-06-29] MEDS ORDERED: Heparin - SQ 10,000 UNITS/ML Vial ONE (07:53)
[2018-06-29] MEDS ORDERED: SODIUM CHLOR 0.9% IV.SIG PRN (08:00)
[2018-06-29] MEDS ORDERED: TRANEXAMIC ACID IV.SIG PRN (08:00)
[2018-06-29] MEDS ORDERED: Metoprolol Tartrate 25 MG Tablet PO ONE (08:07)
[2018-06-29 08:34] LABS: Hematocrit 28.2 % (35.0-46.0); Hemoglobin 9.1 gm/dL (11.6-15.3)
[2018-06-29] MEDS ORDERED: Neostigmine Inj 5 MG/5 ML Syringe IV.PUSH ONE (08:35)
[2018-06-29] MEDS ORDERED: Lidocaine PF 1% Inj 5 ML Syringe OTHER ONE (08:35)
[2018-06-29] MEDS ORDERED: Glycopyrrolate Inj 1 MG/5 ML Syringe IV.PUSH ONE (08:35)
[2018-06-29] MEDS ORDERED: Sodium Chlor 0.9% Inj 500 ML IV.SIG SCH (09:00)
[2018-06-29] MEDS ORDERED: HYDROmorphone PF Inj 1 MG/ML Ampul ONE (09:58)
--- NOTE | 2018-06-29 10:27 | P.OP ---
- Preoperative Diagnosis (1) Traumatic diastasis of symphysis pubis (2) Bilateral fracture of pubic rami (3) Fracture acetabulum-closed Date of procedure: 06/29/18 Procedure: Open reduction internal fixation pubic symphysis, revision of external fixation Anesthesia: JOSE L Surgeon: Tono David MD Galley Boy: NICKI Fisher PA-C The surgical procedure was assisted by my physician transportation assistant. My P.A. presence was necessary throughout this case for the manipulation and positioning of the surgical extremity. My P.A. was assisting me throughout the duration of this procedure. The skill set of a physician transportation assistant was medically necessary to complete this procedure. During the surgical case the surgical technology instructor was working at the back table and the physician transportation assistant was directly assisting me. Operation and Findings: Implants used: Synthes Details of procedure: Patient was seen and evaluated preoperatively. She previously underwent closed reduction with external fixation of her pelvic ring injuries. Repeat x-rays have shown persistent mild pubic symphysis diastases. I had a lengthy discussion with her today regarding continuation of external fixation versus open reduction internal fixation with revision of external fixation. Informed consent was obtained after detailed discussion of risk and benefits of surgery. The operative site was marked. Patient was brought to the OR and placed on the OR table. IV sedation and general endotracheal anesthesia were administered. Timeout procedure was performed. IV antibiotics were administered. The external fixator clamps and bars were now removed. The pins were left in place. The pelvic region was prepped with alcohol followed by Hibiclens and draped in the usual sterile fashion. The procedure began with a five-inch Pfannenstiel incision over the lower abdomen. The subcutaneous tissue was dissected with Bovie. The linea alba was split in line with fibers. The bladder was identified. The bladder was protected throughout the procedure. At this point the pubic symphysis was identified. There was disruption of the pubic symphysis. A 3.5 screw was placed on each side of the pubic symphysis. A 3.5 reduction clamp was now used to reduce the symphysis. Fluoroscopy confirmed excellent alignment of the pelvic ring. A six-hole Synthes plate was selected. The plate was provisionally held to bone with K-wires. 3.5 cortical screws were used to compress plate to bone. Three screws were placed on each side of the pubic symphysis. All screws were pre-drilled and pre-measured for appropriate length. Final fluoroscopy revealed well-aligned fracture with well-placed hardware. Next attention was turned to closure. Fascial layer was closed with # 1 Vicryl. Subcutaneous tissues closed with 3-0 Vicryl. Skin was closed with barry. Sterile dressings were applied. At this point the external fixator was placed back onto the pins. The pins were manipulated to help improve alignment of the pelvic ring. The external fixator was now tightened to hold reduction. Fluoroscopy confirmed appropriate reduction of the pelvis. Needle and sponge counts were correct.
--- NOTE | 2018-06-29 10:59 | XR ---
EXAM DATE: 06/29/2018 10:52 AM EST AGE/SEX: 27 years / Female INDICATIONS: ORIF pubic symphasis with adjustment of xfix. CLINICAL DATA: This is the patient's initial encounter. Patient reports that signs and symptoms have been present for 1 day and indicates a pain score of Nonresponsive. MEDICAL/SURGICAL HISTORY: Non-responsive. Non-responsive. [place] [facility] [place]. [facility] [place]/OUT[place] (3VWS[place] 06/28/2018. . FINDINGS: Several anterior views were obtained in the operating room showing fixation of the pubic symphysis wi th a malleable plate and a total of 6 screws. Alignment is near-anatomic. The more remote screw and p late fixation changes of the right acetabular region are partially included on the study and grossly unchanged. Bilateral pubic ramus fractures are again noted, minimally displaced and not convincingly changed. CONCLUSION: Interim pubic symphysis fixation. Near-anatomic alignment. No acute complication demonstrated. Electronically signed by: Bravo Nagy MD Board Certified Radiologist 06/29/2018 10:57 AM EST
[2018-06-29] MEDS ORDERED: fentaNYL Citrate Inj 100 MCG/2 ML Ampul ONE ×2 (11:04)
[2018-06-29] MEDS ORDERED: *morphine SULFATE 4 MG/ML PERIprocedure ONLY ONE (12:10)
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
[2018-06-29] MEDS: ceFAZolin 2 GM Premix Inj 2 GM/50 ML PIGGYBACK IV.SIG SCH ×2 (15:35→22:34)
[2018-06-29] MEDS: Celecoxib 200 MG Capsule PO SCH (17:54)
[2018-06-29] MEDS: Lidocaine 5% Patch T-DERMAL SCH (17:54)
[2018-06-29] MEDS: Docusate Sodium 100 MG Capsule PO SCH (17:54)
[2018-06-29] MEDS: Sodium Chloride 0.9% 2 ML Flush BID IV.FLUSH SCH ×2 (17:55→20:49)
[2018-06-29] MEDS: Senna/Docusate Sodium 8.6/50 MG Tablet PO SCH ×2 (17:58→20:50)
[2018-06-29] MEDS: oxyCODONE/Acetaminophen 10/325 Tablet PO PRN ×2 (18:35→22:32)
[2018-06-30] MEDS: oxyCODONE/Acetaminophen 10/325 Tablet PO PRN ×7 (02:31→21:58)
[2018-06-30] MEDS: Methocarbamol 500 MG Tablet PO SCH ×3 (05:51→21:55)
[2018-06-30] MEDS: ceFAZolin 2 GM Premix Inj 2 GM/50 ML PIGGYBACK IV.SIG SCH ×4 (05:52→22:02)
[2018-06-30] MEDS: Celecoxib 200 MG Capsule PO SCH (09:02)
[2018-06-30] MEDS: Senna/Docusate Sodium 8.6/50 MG Tablet PO SCH ×2 (09:03→21:54)
[2018-06-30] MEDS: Lidocaine 5% Patch T-DERMAL SCH (09:03)
[2018-06-30] MEDS: Sodium Chloride 0.9% 2 ML Flush BID IV.FLUSH SCH ×2 (09:10→21:54)
--- NOTE | 2018-06-30 10:34 | P.PNOP ---
Subjective Interval history: Patient had some discomfort overnight. Pain is controlled this morning. No new complaint Physical Exam Vital signs: Vital Signs 06/29/18 10:43 06/29/18 10:45 06/29/18 11:00 Temperature 98.1 F Pulse Rate 92 H 86 78 Respiratory Rate 12 13 13 Blood Pressure 120/68 121/66 115/68 Pulse Oximetry 95 97 96 06/29/18 11:15 06/29/18 11:30 06/29/18 11:45 Temperature Pulse Rate 76 80 75 Respiratory Rate 13 14 14 Blood Pressure 116/67 108/64 112/67 Pulse Oximetry 97 98 98 06/29/18 12:00 06/29/18 12:10 06/29/18 12:15 Temperature 97.1 F L Pulse Rate 76 79 Respiratory Rate 18 16 12 Blood Pressure 120/63 112/64 Pulse Oximetry 99 99 06/29/18 16:00 06/29/18 20:00 06/30/18 00:00 Temperature 97.7 F 99.0 F 99.2 F Pulse Rate 76 102 H 110 H Respiratory Rate 18 16 20 Blood Pressure 116/67 121/59 L 108/55 L Pulse Oximetry 100 98 95 06/30/18 04:00 06/30/18 08:00 Temperature 98.6 F 98.1 F Pulse Rate 84 101 H Respiratory Rate 14 16 Blood Pressure 107/56 L 113/68 Pulse Oximetry 96 96 Intake & Output 06/29/18 06/30/18 06/30/18 18:59 06:59 18:59 Intake Total 1663.55 / 1663.55 1480 / 1480 Output Total 3200 / 3200 750 / 750 Balance -1536.45 / -1536.45 730 / 730 Intake: IV 1163.55 / 1163.55 1100 / 1100 LR 1000 mL Inj 1,000 ML @ 80 1000 / 1000 mls/hr IV.CONT .[id number] RO Rx# :[id number] LR 1000 mL Inj 1,000 ML @ 30 1000 / 1000 mls/hr IV.SIG .Q24H RO Rx#: [id number] Cyklokapron Inj 1,355 MG In NS 113.55 / 113.55 Inj 100 ML @ 200 mls/hr IV.SIG [employer] PRN Rx#:[id number] Ancef 2 GM Premix Inj 2 gm In 50 / 50 100 / 100 50 ml @ 200 mls/hr IV.SIG Q8H [facility] Rx#:[id number] Oral 380 / 380 Anesthesia Amount 500 / 500 Output: Urine 2400 / 2400 Estimated Blood Loss 100 / 100 Urine Amount (Catheter) 700 / 700 750 / 750 Indwelling Urethral Catheter 700 / 700 750 / 750 Other: Date of Last Bowel Movement 06/28/18 06/28/18 06/28/18 Narrative: Right upper extremity: Clean dry dressings intact. Mild tenderness with range of motion of shoulder. No pain with elbow wrist range of motion. Distally intact sensation with active extension and flexion of all fingers - Urinary Catheter Management Indwelling Temp Sensing Catheter Cath placed during this visit: yes, but has since been removed by the nurse Reason for continuing: Hourly intake/output Insertion date: 06/16/18 Insertion time: 08:24 Removal date: 06/23/18 Removal time: 06:30 Indwelling Urethral Catheter Cath placed during this visit: yes Reason for continuing: Hourly intake/output Insertion date: 06/29/18 Insertion time: 08:40 Results - Labs CBC & Chem 7: 06/29/18 08:15 06/25/18 06:30 - Imaging Impressions Pelvis X-Ray 06/29/18 00:00 CONCLUSION: Interim pubic symphysis fixation. Near-anatomic alignment. No acute complication demonstrated. Assessment and Plan - Problem List (1) Fracture of clavicle, right, closed Code(s): S42.001A - Fracture of unspecified part of right clavicle, initial encounter for closed fracture Status: Acute Qualifiers: Qualified Code(s): S42.001A - Fracture of unspecified part of right clavicle , initial encounter for closed fracture (2) Traumatic diastasis of symphysis pubis Code(s): S33.4XXA - Traumatic rupture of symphysis pubis, initial encounter Status: Acute Qualifiers: Qualified Code(s): S33.4XXA - Traumatic rupture of symphysis pubis, initial encounter (3) Bilateral fracture of pubic rami Code(s): S32.591A - Other specified fracture of right pubis, initial encounter for closed fracture; S32.592A - Other specified fracture of left pubis, initial encounter for closed fracture Status: Acute Qualifiers: Qualified Code(s): S32.591A - Other specified fracture of right pubis, initial encounter for closed fracture; S32.592A - Other specified fracture of left pubis, initial encounter for closed fracture (4) Fracture acetabulum-closed Code(s): S32.409A - Unspecified fracture of unspecified acetabulum, initial encounter for closed fracture Status: Acute (5) Fracture, scapula closed Code(s): S42.109A - Fracture of unspecified part of scapula, unspecified shoulder, initial encounter for closed fracture Status: Acute Qualifiers: Qualified Code(s): S42.191A - Fracture of other part of scapula, right shoulder, initial encounter for closed fracture - Assessment and Plan 1) Right Clavicle Fx s/p ORIF - POD 13 2) Right Acetabulum fx s/p ORIF - POD 9 3) Pubic Symphysis Diastasis s/p ORIF and revision of x-fix POD 1 -Non-weightbearing right upper extremity. Continue to wear the sling. Occupational therapy and/or physical therapy for passive range of motion of shoulder with active motion of elbow wrist and fingers Maintain dressing times 5 days then remove and replace with Primapore. Beginning POD 10 begin adding Xeroform over incision to breakdown skin glue NWB to BLE with no active leg lifts Lovenox twice daily pin care BID Maintain dressing over posterior incision for 5 days unless drainage. Then dry dressings for 5 days. POD 10 begin adding Xeroform over incision line to help break skin glue down Daily dressing changes beginning POD 2 over abdomen with Xeroform and Primapore
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
[2018-06-30] MEDS: Enoxaparin Inj 40 MG/0.4 ML Syringe SQ SCH (18:27)
[2018-07-01] MEDS: Methocarbamol 500 MG Tablet PO SCH (05:50)
[2018-07-01] MEDS: oxyCODONE/Acetaminophen 10/325 Tablet PO PRN ×4 (05:50→20:03)
[2018-07-01] MEDS: ceFAZolin 2 GM Premix Inj 2 GM/50 ML PIGGYBACK IV.SIG SCH (06:07)
[2018-07-01] MEDS: Enoxaparin Inj 40 MG/0.4 ML Syringe SQ SCH ×2 (07:10→18:04)
[2018-07-01] MEDS: Senna/Docusate Sodium 8.6/50 MG Tablet PO SCH ×2 (08:55→23:44)
[2018-07-01] MEDS: Lidocaine 5% Patch T-DERMAL SCH (08:55)
[2018-07-01] MEDS: Celecoxib 200 MG Capsule PO SCH (08:55)
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
[2018-07-01] MEDS: Sodium Chloride 0.9% 2 ML Flush BID IV.FLUSH SCH ×2 (08:58→23:44)
[2018-07-01] MEDS ORDERED: Bisacodyl 10 MG Supp RECTAL PRN (10:18)
[2018-07-02] MEDS: oxyCODONE/Acetaminophen 10/325 Tablet PO PRN ×5 (00:01→20:46)
[2018-07-02] MEDS: Enoxaparin Inj 40 MG/0.4 ML Syringe SQ SCH ×2 (07:05→18:12)
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
[2018-07-02] MEDS: Celecoxib 200 MG Capsule PO SCH (08:36)
[2018-07-02] MEDS: Lidocaine 5% Patch T-DERMAL SCH (08:37)
[2018-07-02] MEDS: Sodium Chloride 0.9% 2 ML Flush BID IV.FLUSH SCH ×2 (08:38→23:35)
[2018-07-02] MEDS: Senna/Docusate Sodium 8.6/50 MG Tablet PO SCH ×2 (08:38→20:47)
[2018-07-02] MEDS ORDERED: Sodium Chlor 0.9% Inj 500 ML IV.SIG SCH (14:00)
--- NOTE | 2018-07-02 21:53 | XR ---
EXAM DATE: 07/02/2018 9:45 PM EST AGE/SEX: 27 years / Female INDICATIONS: Abdominal pain and diarrhea. CLINICAL DATA: This is the patient's subsequent encounter. Patient reports that signs and symptoms h ave been present for 2 weeks and indicates a pain score of 7/10. MEDICAL/SURGICAL HISTORY: None. . Pelvic external fixator. COMPARISON: C, ABDOMEN 1V KUB, 06/25/2018. . FINDINGS: There are multiple dilated loops of small and large bowel with the region of the cecum measuring 9 c m; the appearance is similar to prior examination on 06/25/2018. Internal and external fixation pelvic hardware is in place. The visualized lower lungs are clear. CONCLUSION: Diffuse dilated loops of small and large bowel, similar in severity to 06/25/2018. Electronically signed by: Donnell Longoria MD Board Certified Radiologist 07/02/2018 9:52 PM EST
[2018-07-03] MEDS: oxyCODONE/Acetaminophen 10/325 Tablet PO PRN ×4 (02:58→20:44)
[2018-07-03] MEDS: Enoxaparin Inj 40 MG/0.4 ML Syringe SQ SCH ×2 (06:07→18:18)
[2018-07-03] MEDS ORDERED: Bisacodyl 10 MG Supp RECTAL ONE (06:53)
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
[2018-07-03] MEDS: Celecoxib 200 MG Capsule PO SCH (08:37)
[2018-07-03] MEDS: Lidocaine 5% Patch T-DERMAL SCH (08:38)
[2018-07-03] MEDS: Senna/Docusate Sodium 8.6/50 MG Tablet PO SCH ×2 (08:38→20:36)
[2018-07-03] MEDS: Sodium Chloride 0.9% 2 ML Flush BID IV.FLUSH SCH ×2 (08:47→20:37)
[2018-07-04] MEDS: oxyCODONE/Acetaminophen 10/325 Tablet PO PRN ×4 (05:52→21:26)
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
[2018-07-04] MEDS: Senna/Docusate Sodium 8.6/50 MG Tablet PO SCH ×2 (10:41→21:25)
[2018-07-04] MEDS: Sodium Chloride 0.9% 2 ML Flush BID IV.FLUSH SCH (10:42)
[2018-07-04] MEDS: Celecoxib 200 MG Capsule PO SCH (10:42)
[2018-07-04] MEDS: Enoxaparin Inj 40 MG/0.4 ML Syringe SQ SCH ×2 (10:42→18:00)
[2018-07-05] MEDS: Sodium Chloride 0.9% 2 ML Flush BID IV.FLUSH SCH ×3 (00:33→21:04)
[2018-07-05] MEDS: oxyCODONE/Acetaminophen 10/325 Tablet PO PRN ×4 (00:33→21:03)
[2018-07-05 05:31] LABS: Baso # (Auto) 0.1 th/mm3 (0.0-0.2); Baso % (Auto) 1.1 % (0.0-2.0); Eos # (Auto) 0.1 th/mm3 (0.0-0.4); Eos % (Auto) 2.3 % (0.0-4.0); Hematocrit 30.7 % (35.0-46.0); Hemoglobin 10.2 gm/dL (11.6-15.3); Lymph # (Auto) 1.5 th/mm3 (1.0-4.8); Lymph % (Auto) 28.6 % (9.0-44.0); Mean Corpuscular HGB Conc 33.4 % (32.0-36.0); Mean Corpuscular Hemoglobin 30.2 pg (27.0-34.0); Mean Corpuscular Volume 90.5 fL (80.0-100.0); Mean Platelet Volume 8.2 fL (7.0-11.0); Mono # (Auto) 0.5 th/mm3 (0.0-0.9); Mono % (Auto) 10.1 % (0.0-8.0); Neut % (Auto) 57.9 % (16.0-70.0); Platelet Count 423 th/mm3 (150-450); Red Blood Count 3.39 mil/mm3 (4.00-5.30); Red Cell Distribution Width 15.4 % (11.6-17.2); White Blood Count 5.3 th/mm3 (4.0-11.0)
[2018-07-05 05:49] LABS: Anion Gap 7 meq/L (5-15); Blood Urea Nitrogen 10 mg/dL (7-18); Calcium 8.8 mg/dL (8.5-10.1); Carbon Dioxide 27.6 meq/L (21.0-32.0); Chloride 105 meq/L (98-107); Glomerular Filtration Rate Greater Than 89 mL/min (>89); Glucose,Random 86 mg/dL (74-106); Potassium 4.1 meq/L (3.5-5.1); Sodium 140 meq/L (136-145)
[2018-07-05] MEDS: Enoxaparin Inj 40 MG/0.4 ML Syringe SQ SCH ×2 (06:18→19:05)
[2018-07-05] MEDS: Celecoxib 200 MG Capsule PO SCH (08:46)
[2018-07-05] MEDS: Senna/Docusate Sodium 8.6/50 MG Tablet PO SCH ×2 (08:46→21:04)
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
[2018-07-05] MEDS: Metoclopramide 10 MG Tablet PO SCH ×2 (13:06→21:03)
[2018-07-06] MEDS: Metoclopramide 10 MG Tablet PO SCH ×3 (04:38→21:31)
[2018-07-06] MEDS: oxyCODONE/Acetaminophen 10/325 Tablet PO PRN ×2 (04:38→21:30)
[2018-07-06] MEDS: Enoxaparin Inj 40 MG/0.4 ML Syringe SQ SCH ×2 (06:35→21:31)
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
[2018-07-06] MEDS: Senna/Docusate Sodium 8.6/50 MG Tablet PO SCH ×2 (09:15→21:32)
[2018-07-06] MEDS: Celecoxib 200 MG Capsule PO SCH (09:15)
[2018-07-06] MEDS: Sodium Chloride 0.9% 2 ML Flush BID IV.FLUSH SCH ×2 (09:15→21:32)
--- NOTE | 2018-07-06 11:13 | XR ---
EXAM DATE: 07/06/2018 11:09 AM EST AGE/SEX: 27 years / Female INDICATIONS: Right clavicle fracture follow up. CLINICAL DATA: This is the patient's subsequent encounter. Patient reports that signs and symptoms h ave been present for 1 day and indicates a pain score of 7/10. MEDICAL/SURGICAL HISTORY: None. . Right clavicle. COMPARISON: No prior exams available for comparison. FINDINGS: 2 views submitted for interpretation. The clavicular fracture has been fixated with a superior mallea ble plate. There is excellent alignment. No complication. CONCLUSION: Clavicle has been fixated with now excellent alignment Electronically signed by: Patrick Rogers MD Board Certified Radiologist 07/06/2018 11:11 AM EST
--- NOTE | 2018-07-06 11:15 | XR ---
EXAM DATE: 07/06/2018 11:11 AM EST AGE/SEX: 27 years / Female INDICATIONS: Follow up pelvic fracture. CLINICAL DATA: This is the patient's subsequent encounter. Patient reports that signs and symptoms h ave been present for 1 day and indicates a pain score of 9/10. MEDICAL/SURGICAL HISTORY: None. . Pelvis. COMPARISON: [facility] [place] & JUDET VIEWS (3VWS), 07/06/2018. . FINDINGS: Inlet outlet views of the pelvis was performed. Patient's multiple pelvic fractures which have been f ixated. There are nondisplaced bilateral inferior pubic rami fractures. There is a malleable plate ac ross the pubic symphysis. There is approximately centimeter step off between the left and right pubic symphysis. The right SI joint remains slightly wider than the left. There is very subtle step-off of the right i liopectineal line. CONCLUSION: Status post multiple fracture fixations as described above. Some step-off along the pubic symphysis. Electronically signed by: Patrick Rogers MD Board Certified Radiologist 07/06/2018 11:13 AM EST
--- NOTE | 2018-07-06 11:19 | XR ---
EXAM DATE: 07/06/2018 11:12 AM EST AGE/SEX: 27 years / Female INDICATIONS: Follow up pelvic fracture. CLINICAL DATA: This is the patient's subsequent encounter. Patient reports that signs and symptoms h ave been present for 1 day and indicates a pain score of 10/10. MEDICAL/SURGICAL HISTORY: None. . Pelvis. COMPARISON: [facility] – [place], PELVIS AP/INLET/OUTLET (3VWS), 06/28/2018. . FINDINGS: 3 images of the pelvis show interval placement of an orthopedic plate with anchoring screws across th e pubic symphysis. Orthopedic plates and screws involving the right acetabulum are unchanged. Externa l fixator device unchanged. Nondisplaced fractures involving the inferior pubic rami bilaterally and left ischium are unchanged. Mild widening of the right SI joint is stable. CONCLUSION: Interval placement of an orthopedic plate across the pubic symphysis. Otherwise, unchanged exam. Electronically signed by: Donnell Lind MD Board Certified Radiologist 07/06/2018 11:17 AM EST
[2018-07-07] MEDS: Metoclopramide 10 MG Tablet PO SCH ×3 (05:28→22:11)
[2018-07-07] MEDS: oxyCODONE/Acetaminophen 10/325 Tablet PO PRN ×2 (05:28→22:10)
--- NOTE | 2018-07-07 06:31 | P.PNOP ---
Subjective Interval history: POD 20 s/p ORIF right clavicle POD 16 s/p ORIF right acetabulum POD 8 s/p ORIF pubic symphysis with revision exfix doing well. no changes or complaints. Physical Exam Vital signs: Vital Signs 07/06/18 09:20 07/06/18 15:10 07/06/18 17:35 Temperature 97.8 F 98.7 F 99.0 F Pulse Rate 88 82 88 Respiratory Rate 18 18 18 Blood Pressure 118/56 L 112/68 118/59 L Pulse Oximetry 99 99 97 07/06/18 19:53 07/07/18 00:18 Temperature 97.7 F 97.8 F Pulse Rate 84 91 H Respiratory Rate 16 16 Blood Pressure 107/60 106/58 L Pulse Oximetry 98 98 Intake & Output 07/06/18 07/06/18 07/07/18 06:59 18:59 06:59 Intake Total 660 / 660 360 / 360 960 / 960 Output Total 600 / 600 900 / 900 675 / 675 Balance 60 / 60 -540 / -540 285 / 285 Weight 92.1 kg 83.1 kg Intake: Oral 660 / 660 360 / 360 960 / 960 Output: Urine Amount (Catheter) 600 / 600 900 / 900 675 / 675 Female External Cath - Purewick 600 / 600 900 / 900 675 / 675 Other: # Incontinent Voids 1 1 Date of Last Bowel Movement 07/05/18 07/05/18 07/06/18 # Bowel Movements 1 # Incontinent Bowel Movements 1 Narrative: RUE: incision healing well. no erythema or drainage. nvi to median/ulnar nerve RLE: incision healing well. no erythema or drainage. nvi distally Pelvis: exfix in place. pin sites clean. dressings clean and dry. - Urinary Catheter Management Indwelling Temp Sensing Catheter Cath placed during this visit: yes, but has since been removed by the nurse Reason for continuing: Hourly intake/output Insertion date: 06/16/18 Insertion time: 08:24 Removal date: 06/23/18 Removal time: 06:30 Indwelling Urethral Catheter Cath placed during this visit: yes, but has since been removed by the nurse Reason for continuing: Decision to DC catheter Insertion date: 06/29/18 Insertion time: 08:40 Removal date: 07/02/18 Removal time: 05:00 Female External Cath - Purewick Cath placed during this visit: no Results - Labs CBC & Chem 7: 07/05/18 04:51 07/05/18 04:51 - Imaging Impressions Clavicle X-Ray 07/06/18 00:00 CONCLUSION: Clavicle has been fixated with now excellent alignment Pelvis X-Ray 07/06/18 00:00 CONCLUSION: Interval placement of an orthopedic plate across the pubic symphysis. Otherwise , unchanged exam. Pelvis X-Ray 07/06/18 00:00 CONCLUSION: Status post multiple fracture fixations as described above. Some step-off along the pubic symphysis. Assessment and Plan - Problem List (1) Fracture of clavicle, right, closed Code(s): S42.001A - Fracture of unspecified part of right clavicle, initial encounter for closed fracture Status: Acute Qualifiers: Encounter type: initial encounter Clavicle location: unspecified part of clavicle Fracture alignment: displaced Qualified Code(s): S42.001A - Fracture of unspecified part of right clavicle, initial encounter for closed fracture (2) Traumatic diastasis of symphysis pubis Code(s): S33.4XXA - Traumatic rupture of symphysis pubis, initial encounter Status: Acute Qualifiers: Encounter type: initial encounter Qualified Code(s): S33.4XXA - Traumatic rupture of symphysis pubis, initial encounter (3) Bilateral fracture of pubic rami Code(s): S32.591A - Other specified fracture of right pubis, initial encounter for closed fracture; S32.592A - Other specified fracture of left pubis, initial encounter for closed fracture Status: Acute Qualifiers: Encounter type: initial encounter Fracture type: closed Qualified Code(s) : S32.591A - Other specified fracture of right pubis, initial encounter for closed fracture; S32.592A - Other specified fracture of left pubis, initial encounter for closed fracture (4) Fracture acetabulum-closed Code(s): S32.409A - Unspecified fracture of unspecified acetabulum, initial encounter for closed fracture Status: Acute Qualifiers: Encounter type: initial encounter Sublocation of acetabulum: unspecified portion of acetabulum Laterality: unspecified laterality (5) Fracture, scapula closed Code(s): S42.109A - Fracture of unspecified part of scapula, unspecified shoulder, initial encounter for closed fracture Status: Acute Qualifiers: Encounter type: initial encounter Scapula location: other part of scapula Laterality: right Qualified Code(s): S42.191A - Fracture of other part of scapula, right shoulder, initial encounter for closed fracture - Assessment and Plan 1) Right Clavicle Fx s/p ORIF - POD 20 2) Right Acetabulum fx s/p ORIF - POD 16 3) Pubic Symphysis Diastasis s/p ORIF and revision of x-fix POD 8 -Non-weightbearing right upper extremity. Continue to wear the sling. Occupational therapy and/or physical therapy for passive range of motion of shoulder with active motion of elbow wrist and fingers NWB to BLE with no active leg lifts Lovenox twice daily pin care BID Daily dressing changes beginning POD 2 over abdomen with Xeroform and Primapore -DC barry from right shoulder and right hip incision today. recover with primapore. DC dressings in 2 days.
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
[2018-07-07] MEDS: Enoxaparin Inj 40 MG/0.4 ML Syringe SQ SCH ×2 (07:37→18:36)
[2018-07-07] MEDS: Celecoxib 200 MG Capsule PO SCH (09:25)
[2018-07-07] MEDS: Senna/Docusate Sodium 8.6/50 MG Tablet PO SCH ×2 (09:25→22:11)
[2018-07-07] MEDS: Sodium Chloride 0.9% 2 ML Flush BID IV.FLUSH SCH ×2 (09:27→22:12)
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
[2018-07-08] MEDS: Metoclopramide 10 MG Tablet PO SCH ×3 (04:37→21:57)
[2018-07-08] MEDS: Enoxaparin Inj 40 MG/0.4 ML Syringe SQ SCH ×2 (06:38→18:05)
--- NOTE | 2018-07-08 06:38 | P.PNOP ---
Subjective Interval history: Resting comfortable. Has questions and translating device is brought into room Physical Exam Vital signs: Vital Signs 07/07/18 13:00 07/07/18 17:00 07/07/18 19:48 Temperature 98.3 F 98.2 F 98.8 F Pulse Rate 87 86 87 Respiratory Rate 19 18 16 Blood Pressure 117/59 L 111/62 114/63 Pulse Oximetry 97 97 98 07/07/18 22:40 07/07/18 23:57 Temperature 98.6 F Pulse Rate 85 Respiratory Rate 18 16 Blood Pressure 112/58 L Pulse Oximetry 97 Intake & Output 07/07/18 07/07/18 07/08/18 06:59 18:59 06:59 Intake Total 960 / 960 1480 / 1480 Output Total 675 / 675 500 / 500 500 / 500 Balance 285 / 285 -500 / -500 980 / 980 Weight 83.1 kg 81.9 kg Intake: Oral 960 / 960 1480 / 1480 Output: Urine 500 / 500 Urine Amount (Catheter) 675 / 675 500 / 500 Female External Cath - Purewick 675 / 675 500 / 500 Other: # Voids 2 # Incontinent Voids 1 Date of Last Bowel Movement 07/06/18 07/06/18 07/07/18 # Incontinent Bowel Movements 1 2 Narrative: Right upper extremity: Incision well approximated healing well. [place] been removed. Dressings clean and dry. Intact sensation distally with full extension and flexion of all fingers Surgical incision over the anterior pelvis well approximated with barry in position. No erythema or drainage. External fixator in place with pins clean and dry. Posterior surgical incision barry have been removed incision is well approximated and healing well. Minimal pain with passive range of motion of hips. Distally intact sensation with good capillary refills. Active dorsiflexion plantar flexion of bilateral feet. Intact distal pulses. - Urinary Catheter Management Indwelling Temp Sensing Catheter Cath placed during this visit: yes, but has since been removed by the nurse Reason for continuing: Hourly intake/output Insertion date: 06/16/18 Insertion time: 08:24 Removal date: 06/23/18 Removal time: 06:30 Indwelling Urethral Catheter Cath placed during this visit: yes, but has since been removed by the nurse Reason for continuing: Decision to DC catheter Insertion date: 06/29/18 Insertion time: 08:40 Removal date: 07/02/18 Removal time: 05:00 Female External Cath - Purewick Cath placed during this visit: no Results - Labs CBC & Chem 7: 07/05/18 04:51 07/05/18 04:51 Assessment and Plan - Problem List (1) Fracture of clavicle, right, closed Code(s): S42.001A - Fracture of unspecified part of right clavicle, initial encounter for closed fracture Status: Acute Qualifiers: Encounter type: initial encounter Clavicle location: unspecified part of clavicle Fracture alignment: displaced Qualified Code(s): S42.001A - Fracture of unspecified part of right clavicle, initial encounter for closed fracture (2) Traumatic diastasis of symphysis pubis Code(s): S33.4XXA - Traumatic rupture of symphysis pubis, initial encounter Status: Acute Qualifiers: Encounter type: initial encounter Qualified Code(s): S33.4XXA - Traumatic rupture of symphysis pubis, initial encounter (3) Bilateral fracture of pubic rami Code(s): S32.591A - Other specified fracture of right pubis, initial encounter for closed fracture; S32.592A - Other specified fracture of left pubis, initial encounter for closed fracture Status: Acute Qualifiers: Encounter type: initial encounter Fracture type: closed Qualified Code(s) : S32.591A - Other specified fracture of right pubis, initial encounter for closed fracture; S32.592A - Other specified fracture of left pubis, initial encounter for closed fracture (4) Fracture acetabulum-closed Code(s): S32.409A - Unspecified fracture of unspecified acetabulum, initial encounter for closed fracture Status: Acute Qualifiers: Encounter type: initial encounter Sublocation of acetabulum: unspecified portion of acetabulum Laterality: unspecified laterality (5) Fracture, scapula closed Code(s): S42.109A - Fracture of unspecified part of scapula, unspecified shoulder, initial encounter for closed fracture Status: Acute Qualifiers: Encounter type: initial encounter Scapula location: other part of scapula Laterality: right Qualified Code(s): S42.191A - Fracture of other part of scapula, right shoulder, initial encounter for closed fracture - Assessment and Plan 1) Right Clavicle Fx s/p ORIF - POD 21 2) Right Acetabulum fx s/p ORIF - POD 17 3) Pubic Symphysis Diastasis s/p ORIF and revision of x-fix POD 9 -Non-weightbearing right upper extremity. Continue to wear the sling. Occupational therapy and/or physical therapy for passive range of motion of shoulder with active motion of elbow wrist and fingers NWB to BLE with no active leg lifts Lovenox twice daily pin care BID Daily dressing changes over abdomen with Xeroform and [place] Case management for possible rehab or discharge placement
[2018-07-08] MEDS: Senna/Docusate Sodium 8.6/50 MG Tablet PO SCH ×2 (09:44→21:57)
[2018-07-08] MEDS: Celecoxib 200 MG Capsule PO SCH (09:44)
[2018-07-08] MEDS: Sodium Chloride 0.9% 2 ML Flush BID IV.FLUSH SCH ×2 (09:46→21:58)
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
[2018-07-08] MEDS: oxyCODONE/Acetaminophen 10/325 Tablet PO PRN (21:58)
[2018-07-09] MEDS: Metoclopramide 10 MG Tablet PO SCH ×3 (04:21→20:44)
[2018-07-09] MEDS: Enoxaparin Inj 40 MG/0.4 ML Syringe SQ SCH ×2 (06:45→18:43)
[2018-07-09] MEDS: oxyCODONE/Acetaminophen 10/325 Tablet PO PRN ×2 (06:46→10:47)
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
[2018-07-09] MEDS: Sodium Chloride 0.9% 2 ML Flush BID IV.FLUSH SCH ×2 (10:46→20:45)
[2018-07-09] MEDS: Senna/Docusate Sodium 8.6/50 MG Tablet PO SCH ×2 (10:46→20:45)
[2018-07-09] MEDS: Celecoxib 200 MG Capsule PO SCH (10:46)
[2018-07-10] MEDS: Metoclopramide 10 MG Tablet PO SCH ×3 (03:12→20:53)
[2018-07-10] MEDS: Enoxaparin Inj 40 MG/0.4 ML Syringe SQ SCH ×2 (06:46→17:40)
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
[2018-07-10] MEDS: Celecoxib 200 MG Capsule PO SCH (11:39)
[2018-07-10] MEDS: Senna/Docusate Sodium 8.6/50 MG Tablet PO SCH ×2 (11:40→20:53)
[2018-07-10] MEDS: Sodium Chloride 0.9% 2 ML Flush BID IV.FLUSH SCH ×2 (11:40→20:52)
[2018-07-11] MEDS: Metoclopramide 10 MG Tablet PO SCH ×3 (04:14→21:33)
[2018-07-11] MEDS: oxyCODONE/Acetaminophen 10/325 Tablet PO PRN ×2 (04:15→21:32)
[2018-07-11] MEDS: Enoxaparin Inj 40 MG/0.4 ML Syringe SQ SCH ×3 (06:18→22:10)
--- NOTE | 2018-07-11 06:27 | P.PNOP ---
Subjective Interval history: Resting comfortably with no new complaints. Physical Exam Vital signs: Vital Signs 07/10/18 07:21 07/10/18 11:00 07/10/18 15:00 Temperature 98.5 F 98.6 F 98.1 F Pulse Rate 82 87 94 H Respiratory Rate 16 16 16 Blood Pressure 103/62 108/61 114/68 Pulse Oximetry 97 98 99 07/10/18 20:20 07/11/18 00:00 Temperature 98.5 F Pulse Rate 87 Respiratory Rate 18 15 Blood Pressure 116/63 Pulse Oximetry 98 Intake & Output 07/10/18 07/10/18 07/11/18 06:59 18:59 06:59 Intake Total 750 / 750 Output Total 350 / 350 Balance 750 / 750 -350 / -350 Weight 81.8 kg Intake: Oral 750 / 750 Output: Urine 350 / 350 Other: # Incontinent Voids 2 Date of Last Bowel Movement 07/08/18 07/10/18 07/10/18 # Bowel Movements 0 3 Narrative: Right upper extremity: Incision well approximated healing well. [employer] been removed. Dressings clean and dry. Intact sensation distally with full extension and flexion of all fingers Surgical incision over the anterior pelvis well approximated with barry in position. No erythema or drainage. External fixator in place with pins clean and dry. Posterior surgical incision barry have been removed incision is well approximated and healing well. Minimal pain with passive range of motion of hips. Distally intact sensation with good capillary refills. Active dorsiflexion plantar flexion of bilateral feet. Intact distal pulses. - Urinary Catheter Management Indwelling Temp Sensing Catheter Cath placed during this visit: yes, but has since been removed by the nurse Reason for continuing: Hourly intake/output Insertion date: 06/16/18 Insertion time: 08:24 Removal date: 06/23/18 Removal time: 06:30 Indwelling Urethral Catheter Cath placed during this visit: yes, but has since been removed by the nurse Reason for continuing: Decision to DC catheter Insertion date: 06/29/18 Insertion time: 08:40 Removal date: 07/02/18 Removal time: 05:00 Female External Cath - Purewick Cath placed during this visit: no Results - Labs CBC & Chem 7: 07/05/18 04:51 07/05/18 04:51 Assessment and Plan - Problem List (1) Fracture of clavicle, right, closed Code(s): S42.001A - Fracture of unspecified part of right clavicle, initial encounter for closed fracture Status: Acute Qualifiers: Encounter type: initial encounter Clavicle location: unspecified part of clavicle Fracture alignment: displaced Qualified Code(s): S42.001A - Fracture of unspecified part of right clavicle, initial encounter for closed fracture (2) Traumatic diastasis of symphysis pubis Code(s): S33.4XXA - Traumatic rupture of symphysis pubis, initial encounter Status: Acute Qualifiers: Encounter type: initial encounter Qualified Code(s): S33.4XXA - Traumatic rupture of symphysis pubis, initial encounter (3) Bilateral fracture of pubic rami Code(s): S32.591A - Other specified fracture of right pubis, initial encounter for closed fracture; S32.592A - Other specified fracture of left pubis, initial encounter for closed fracture Status: Acute Qualifiers: Encounter type: initial encounter Fracture type: closed Qualified Code(s) : S32.591A - Other specified fracture of right pubis, initial encounter for closed fracture; S32.592A - Other specified fracture of left pubis, initial encounter for closed fracture (4) Fracture acetabulum-closed Code(s): S32.409A - Unspecified fracture of unspecified acetabulum, initial encounter for closed fracture Status: Acute Qualifiers: Encounter type: initial encounter Sublocation of acetabulum: unspecified portion of acetabulum Laterality: unspecified laterality (5) Fracture, scapula closed Code(s): S42.109A - Fracture of unspecified part of scapula, unspecified shoulder, initial encounter for closed fracture Status: Acute Qualifiers: Encounter type: initial encounter Scapula location: other part of scapula Laterality: right Qualified Code(s): S42.191A - Fracture of other part of scapula, right shoulder, initial encounter for closed fracture - Assessment and Plan 1) Right Clavicle Fx s/p ORIF - POD 25 2) Right Acetabulum fx s/p ORIF - POD 21 3) Pubic Symphysis Diastasis s/p ORIF and revision of x-fix POD 13 -Non-weightbearing right upper extremity. Continue to wear the sling. Occupational therapy and/or physical therapy for passive range of motion of shoulder with active motion of elbow wrist and fingers NWB to BLE with no active leg lifts Lovenox twice daily pin care BID Daily dressing changes over abdomen with Xeroform and [place] Case management for possible rehab or discharge placement External fixation will remain in place for full 3 months
[2018-07-11] MEDS: Celecoxib 200 MG Capsule PO SCH (07:59)
[2018-07-11] MEDS: Sodium Chloride 0.9% 2 ML Flush BID IV.FLUSH SCH ×2 (08:02→21:35)
[2018-07-11] MEDS: Senna/Docusate Sodium 8.6/50 MG Tablet PO SCH ×2 (08:02→22:10)
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
[2018-07-12] MEDS: Metoclopramide 10 MG Tablet PO SCH (04:16)
[2018-07-12] MEDS: Enoxaparin Inj 40 MG/0.4 ML Syringe SQ SCH ×2 (06:32→18:14)
[2018-07-12] MEDS: Celecoxib 200 MG Capsule PO SCH (08:28)
[2018-07-12] MEDS: Sodium Chloride 0.9% 2 ML Flush BID IV.FLUSH SCH ×2 (08:29→20:37)
[2018-07-12] MEDS: Senna/Docusate Sodium 8.6/50 MG Tablet PO SCH ×2 (08:29→20:38)
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
[2018-07-12] MEDS: oxyCODONE/Acetaminophen 10/325 Tablet PO PRN (20:37)
[2018-07-13] MEDS: Enoxaparin Inj 40 MG/0.4 ML Syringe SQ SCH ×2 (06:18→19:19)
[2018-07-13] MEDS: Celecoxib 200 MG Capsule PO SCH (09:52)
[2018-07-13] MEDS: Senna/Docusate Sodium 8.6/50 MG Tablet PO SCH ×2 (09:56→20:50)
[2018-07-13] MEDS: Sodium Chloride 0.9% 2 ML Flush BID IV.FLUSH SCH ×2 (09:56→20:50)
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
[2018-07-13] MEDS: oxyCODONE/Acetaminophen 10/325 Tablet PO PRN (20:50)
[2018-07-14] MEDS: Enoxaparin Inj 40 MG/0.4 ML Syringe SQ SCH ×2 (06:43→18:20)
[2018-07-14] MEDS: Senna/Docusate Sodium 8.6/50 MG Tablet PO SCH ×2 (08:37→22:19)
[2018-07-14] MEDS: Celecoxib 200 MG Capsule PO SCH (08:37)
[2018-07-14] MEDS: Sodium Chloride 0.9% 2 ML Flush BID IV.FLUSH SCH ×2 (08:38→22:19)
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
[2018-07-15 04:38] LABS: Baso % (Auto) 0.8 % (0.0-2.0); Eos # (Auto) 0.2 th/mm3 (0.0-0.4); Eos % (Auto) 3.7 % (0.0-4.0); Lymph # (Auto) 1.8 th/mm3 (1.0-4.8); Lymph % (Auto) 30.3 % (9.0-44.0); Mean Corpuscular HGB Conc 34.1 % (32.0-36.0); Mean Corpuscular Volume 90.9 fL (80.0-100.0); Mean Platelet Volume 9.4 fL (7.0-11.0); Mono # (Auto) 0.7 th/mm3 (0.0-0.9); Mono % (Auto) 11.5 % (0.0-8.0); Neut # (Auto) 3.2 th/mm3 (1.8-7.7); Neut % (Auto) 53.7 % (16.0-70.0); Platelet Count 237 th/mm3 (150-450); Red Blood Count 3.85 mil/mm3 (4.00-5.30); Red Cell Distribution Width 15.5 % (11.6-17.2); White Blood Count 5.9 th/mm3 (4.0-11.0)
[2018-07-15 05:01] LABS: Anion Gap 7 meq/L (5-15); Blood Urea Nitrogen 15 mg/dL (7-18); Calcium 8.8 mg/dL (8.5-10.1); Carbon Dioxide 28.4 meq/L (21.0-32.0); Chloride 106 meq/L (98-107); Glomerular Filtration Rate Greater Than 89 mL/min (>89); Glucose,Random 88 mg/dL (74-106); Potassium 3.9 meq/L (3.5-5.1); Sodium 141 meq/L (136-145)
[2018-07-15] MEDS: Enoxaparin Inj 40 MG/0.4 ML Syringe SQ SCH (06:55)
[2018-07-15] MEDS: Senna/Docusate Sodium 8.6/50 MG Tablet PO SCH ×2 (09:28→21:23)
[2018-07-15] MEDS: Celecoxib 200 MG Capsule PO SCH (09:28)
[2018-07-15] MEDS: Sodium Chloride 0.9% 2 ML Flush BID IV.FLUSH SCH ×2 (09:29→21:24)
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
[2018-07-16] MEDS: Enoxaparin Inj 40 MG/0.4 ML Syringe SQ SCH ×3 (06:26→18:42)
[2018-07-16] MEDS: Celecoxib 200 MG Capsule PO SCH (08:36)
[2018-07-16] MEDS: Senna/Docusate Sodium 8.6/50 MG Tablet PO SCH ×2 (08:38→20:47)
[2018-07-16] MEDS: Sodium Chloride 0.9% 2 ML Flush BID IV.FLUSH SCH ×2 (08:38→20:52)
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
[2018-07-17] MEDS: Enoxaparin Inj 40 MG/0.4 ML Syringe SQ SCH ×3 (06:25→18:42)
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
[2018-07-17] MEDS: Celecoxib 200 MG Capsule PO SCH (09:09)
[2018-07-17] MEDS: Senna/Docusate Sodium 8.6/50 MG Tablet PO SCH ×2 (09:11→20:50)
[2018-07-17] MEDS: Sodium Chloride 0.9% 2 ML Flush BID IV.FLUSH SCH ×2 (09:11→20:46)
[2018-07-18] MEDS: Enoxaparin Inj 40 MG/0.4 ML Syringe SQ SCH ×2 (06:10→19:52)
--- NOTE | 2018-07-18 07:09 | P.PNOP ---
Subjective Interval history: Resting comfortably with no new complaints. Physical Exam Vital signs: Vital Signs 07/17/18 08:00 07/17/18 12:00 07/17/18 16:00 Temperature 98.5 F 98.3 F 98.6 F Pulse Rate 79 78 91 H Respiratory Rate 16 18 18 Blood Pressure 104/58 L 104/58 L 109/65 Pulse Oximetry 97 100 98 07/17/18 20:46 07/17/18 21:23 07/17/18 23:51 Temperature 98.0 F 98.1 F Pulse Rate 87 83 Respiratory Rate 16 18 16 Blood Pressure 112/64 112/65 Pulse Oximetry 99 99 07/18/18 03:08 Temperature Pulse Rate Respiratory Rate 17 Blood Pressure Pulse Oximetry Intake & Output 07/17/18 07/18/18 07/18/18 18:59 06:59 18:59 Intake Total 960 / 960 Output Total 350 / 350 Balance 610 / 610 Weight 80.6 kg Intake: Oral 960 / 960 Output: Urine Amount (Catheter) 350 / 350 Female External Cath - Purewick 350 / 350 Other: Date of Last Bowel Movement 07/16/18 # Bowel Movements 0 Narrative: Right upper extremity: Incision healed. Mild swelling. Mild tenderness with passive range of motion of shoulder. No pain with elbow wrist or fingers. Intact sensation distally with good capillary refills. Full extension and flexion of fingers Abdomen: External fixator in place over pelvis. Surgical incision over pubic symphysis well approximated with barry in position. No erythema or drainage. Posterior surgical incision is completely healed. Bilateral lower extremities: Full range of motion and neurovascularly intact - Urinary Catheter Management Indwelling Temp Sensing Catheter Cath placed during this visit: yes, but has since been removed by the nurse Reason for continuing: Hourly intake/output Insertion date: 06/16/18 Insertion time: 08:24 Removal date: 06/23/18 Removal time: 06:30 Indwelling Urethral Catheter Cath placed during this visit: yes, but has since been removed by the nurse Reason for continuing: Decision to DC catheter Insertion date: 06/29/18 Insertion time: 08:40 Removal date: 07/02/18 Removal time: 05:00 Female External Cath - Purewick Cath placed during this visit: no Results - Labs CBC & Chem 7: 07/15/18 03:05 07/15/18 03:05 Assessment and Plan - Problem List (1) Fracture of clavicle, right, closed Code(s): S42.001A - Fracture of unspecified part of right clavicle, initial encounter for closed fracture Status: Acute Qualifiers: Encounter type: initial encounter Clavicle location: unspecified part of clavicle Fracture alignment: displaced Qualified Code(s): S42.001A - Fracture of unspecified part of right clavicle, initial encounter for closed fracture (2) Traumatic diastasis of symphysis pubis Code(s): S33.4XXA - Traumatic rupture of symphysis pubis, initial encounter Status: Acute Qualifiers: Encounter type: initial encounter Qualified Code(s): S33.4XXA - Traumatic rupture of symphysis pubis, initial encounter (3) Bilateral fracture of pubic rami Code(s): S32.591A - Other specified fracture of right pubis, initial encounter for closed fracture; S32.592A - Other specified fracture of left pubis, initial encounter for closed fracture Status: Acute Qualifiers: Encounter type: initial encounter Fracture type: closed Qualified Code(s) : S32.591A - Other specified fracture of right pubis, initial encounter for closed fracture; S32.592A - Other specified fracture of left pubis, initial encounter for closed fracture (4) Fracture acetabulum-closed Code(s): S32.409A - Unspecified fracture of unspecified acetabulum, initial encounter for closed fracture Status: Acute Qualifiers: Encounter type: initial encounter Sublocation of acetabulum: unspecified portion of acetabulum Laterality: unspecified laterality (5) Fracture, scapula closed Code(s): S42.109A - Fracture of unspecified part of scapula, unspecified shoulder, initial encounter for closed fracture Status: Acute Qualifiers: Encounter type: initial encounter Scapula location: other part of scapula Laterality: right Qualified Code(s): S42.191A - Fracture of other part of scapula, right shoulder, initial encounter for closed fracture - Assessment and Plan 1) Right Clavicle Fx s/p ORIF - POD 31 2) Right Acetabulum fx s/p ORIF - POD 27 3) Pubic Symphysis Diastasis s/p ORIF and revision of x-fix POD 19 -Non-weightbearing right upper extremity. Continue to wear the sling. Occupational therapy and/or physical therapy for passive range of motion of shoulder with active motion of elbow wrist and fingers NWB to BLE with no active leg lifts Lovenox twice daily pin care BID Discontinue barry over abdomen then Daily dressing changes over abdomen with Xeroform and Prim[place] times 2 days then discontinue Case management for possible rehab or discharge placement External fixation will remain in place for full 3 months
[2018-07-18] MEDS: Sodium Chloride 0.9% 2 ML Flush BID IV.FLUSH SCH (08:13)
[2018-07-18] MEDS: Senna/Docusate Sodium 8.6/50 MG Tablet PO SCH ×2 (08:13→22:43)
[2018-07-18] MEDS: Celecoxib 200 MG Capsule PO SCH (08:13)
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
[2018-07-19] MEDS: Enoxaparin Inj 40 MG/0.4 ML Syringe SQ SCH ×2 (07:36→18:05)
[2018-07-19] MEDS: Sodium Chloride 0.9% 2 ML Flush BID IV.FLUSH SCH ×3 (07:50→22:22)
[2018-07-19] MEDS: Celecoxib 200 MG Capsule PO SCH ×2 (07:52→08:22)
[2018-07-19] MEDS: Senna/Docusate Sodium 8.6/50 MG Tablet PO SCH ×2 (08:21→22:22)
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
[2018-07-20] MEDS: Enoxaparin Inj 40 MG/0.4 ML Syringe SQ SCH ×2 (06:22→21:11)
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
[2018-07-20] MEDS: Senna/Docusate Sodium 8.6/50 MG Tablet PO SCH ×2 (09:57→21:12)
[2018-07-20] MEDS: Celecoxib 200 MG Capsule PO SCH (09:58)
[2018-07-20] MEDS: Sodium Chloride 0.9% 2 ML Flush BID IV.FLUSH SCH ×2 (09:59→21:00)
[2018-07-21] MEDS: Enoxaparin Inj 40 MG/0.4 ML Syringe SQ SCH ×2 (07:35→18:08)
[2018-07-21] MEDS: Celecoxib 200 MG Capsule PO SCH (08:44)
[2018-07-21] MEDS: Senna/Docusate Sodium 8.6/50 MG Tablet PO SCH ×2 (08:48→21:06)
[2018-07-21] MEDS: Sodium Chloride 0.9% 2 ML Flush BID IV.FLUSH SCH ×2 (08:48→21:07)
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
[2018-07-22] MEDS: Enoxaparin Inj 40 MG/0.4 ML Syringe SQ SCH ×2 (06:17→18:21)
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
[2018-07-22] MEDS: Celecoxib 200 MG Capsule PO SCH (08:42)
[2018-07-22] MEDS: Senna/Docusate Sodium 8.6/50 MG Tablet PO SCH ×2 (08:44→22:05)
[2018-07-22] MEDS: Sodium Chloride 0.9% 2 ML Flush BID IV.FLUSH SCH ×2 (08:44→22:05)
[2018-07-23] MEDS: Enoxaparin Inj 40 MG/0.4 ML Syringe SQ SCH (06:41)
[2018-07-23] MEDS: Senna/Docusate Sodium 8.6/50 MG Tablet PO SCH (09:02)
[2018-07-23] MEDS: Celecoxib 200 MG Capsule PO SCH (09:02)
[2018-07-23] MEDS: Sodium Chloride 0.9% 2 ML Flush BID IV.FLUSH SCH (09:02)
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
== END 2018-07-23 14:05 | DRG 957 ==
LOC: NEPI 06:11 → EDBD 07:10 → NEDA 07:10 → N03 07:11 → N06 06-18 15:08
PROVIDERS: ADMIT Surgery; ATTEND Surgery
DX: S32.10XA Unspecified fracture of sacrum, initial encounter for closed fracture; S35.511A Injury of right iliac artery, initial encounter; S32.301A Unspecified fracture of right ilium, initial encounter for closed fracture; Y93.89 Activity, other specified; V48.5XXA Car driver injured in noncollision transport accident in traffic accident, initial encounter; Y92.411 Interstate highway as the place of occurrence of the external cause; R57.1 Hypovolemic shock; R00.0 Tachycardia, unspecified; S27.1XXA Traumatic hemothorax, initial encounter; S32.592A Other specified fracture of left pubis, initial encounter for closed fracture; S32.492A Other specified fracture of left acetabulum, initial encounter for closed fracture; S22.41XA Multiple fractures of ribs, right side, initial encounter for closed fracture; S32.302A Unspecified fracture of left ilium, initial encounter for closed fracture; S42.001A Fracture of unspecified part of right clavicle, initial encounter for closed fracture; S00.81XA Abrasion of other part of head, initial encounter; S32.491A Other specified fracture of right acetabulum, initial encounter for closed fracture; S42.191A Fracture of other part of scapula, right shoulder, initial encounter for closed fracture; S32.591A Other specified fracture of right pubis, initial encounter for closed fracture; S32.691A Other specified fracture of right ischium, initial encounter for closed fracture; L89.312 Pressure ulcer of right buttock, stage 2; S27.321A Contusion of lung, unilateral, initial encounter; S30.0XXA Contusion of lower back and pelvis, initial encounter; K56.7 Ileus, unspecified; S33.4XXA Traumatic rupture of symphysis pubis, initial encounter
CPT/HCPCS: 36012; 36247; 36415; 36430; 37244; 70450; 70486; 71010; 71045; 71260; 72125; 72129; 72132; 72170; 72190; 73000; 73700; 74000; 74018; 74177; 75736; 75774; 75820; 76000; 76377; 76937; 77261; 77290; 77307; 77334; 77336; 77412; 77417; 77431; 80048; 80053; 80307; 84702; 85014; 85018; 85025; 85610; 85730; 86850; 86900; 86901; 86920; 86923; 87493; 87641; 90471; 90715; 90774; 90775; 90784; 94150; 94640; 94664; 94665; 96374; 96375; 97110; 97163; 97167; 97530; 97535; 99145; 99152; 99153; 99231; 99285; 99291; A4646; C1713; C1769; C1887; C1893; C1894; C8952; C9113; G0390; J0131; J0330; J0690; J1100; J1170; J1580; J1644; J1650; J1885; J2175; J2250; J2270; J2405; J2704; J2710; J2765; J3010; J3370; J7030; J7040; J7050; J7120; L1830; L8699; P9016; Q9949; Q9967